=== PATIENT | male | born 2000 | race Caucasian/White ===

== ENCOUNTER 2022-09-20 14:53 | Inpatient (IN) | payer OTHER ==
[2022-09-20 16:58] LABS: BASO % 0.8 % (0-2.0); EOS % 3.7 % (0-4.5); HEMATOCRIT 43.9 % (35.4-49); HEMOGLOBIN 15.2 GM/dL (11.7-16.9); LYMPH % 14.4 % (8-40); MCH 26.9 pg (25.7-33.7); MCHC 34.5 g/dl (32.0-35.9); MEAN CELL VOLUME 77.8 fl (80-96); MEAN PLT VOLUME 8.7 fl (7.5-11.1); MONO % 4.6 % (3.8-10.2); NEUT % 76.5 % (42.8-82.8); PLATELET COUNT 385 10^3/uL (134-434); RBC 5.64 M/mm3 (4.00-5.60); WHITE BLOOD COUNT 10.2 K/mm3 (4.0-10.0)
[2022-09-20 17:05] LABS: INR 1.12 (0.83-1.09)
[2022-09-20 17:08] LABS: ACTIVATED PTT 34.4 SECONDS (25.2-36.5)
[2022-09-20 17:14] LABS: CALCIUM 9.4 mg/dL (8.5-10.1)
[2022-09-20 17:15] LABS: ALBUMIN 3.9 g/dl (3.4-5.0); BLOOD UREA NITROGEN 6.5 mg/dL (7-18)
[2022-09-20 17:18] LABS: CREATININE 0.4 mg/dL (0.55-1.3)
[2022-09-20 17:19] LABS: BILIRUBIN,TOTAL 0.2 mg/dL (0.2-1)
[2022-09-21] MEDS: levETIRAcetam 500 MG/5 ML INJECTION VIAL IVPB SCH ×3 (00:44→21:37)
[2022-09-21 02:30] VITALS: BMI 22.6
[2022-09-21 09:20] LABS: HEMATOCRIT 45.6 % (35.4-49); HEMOGLOBIN 15.5 GM/dL (11.7-16.9); MCH 26.7 pg (25.7-33.7); MEAN CELL VOLUME 78.4 fl (80-96); MEAN PLT VOLUME 8.5 fl (7.5-11.1); PLATELET COUNT 390 10^3/uL (134-434); RBC 5.82 M/mm3 (4.00-5.60); RDW 14.2 % (11.9-15.9); WHITE BLOOD COUNT 13.5 K/mm3 (4.0-10.0)
[2022-09-21 09:26] LABS: INR 1.27 (0.83-1.09); PROTHROMBIN TIME (PATIENT) 14.7 SEC (9.7-13.0)
[2022-09-21] MEDS ORDERED: SODIUM CHLORIDE 1,000 ML IV SCH (09:30)
[2022-09-21] MEDS ORDERED: AMPICILLIN NA/SULBACTAM NA 1.5 GM in SODIUM CHLORIDE 100 ML IVPB SCH ×2 (09:30→09:47)
[2022-09-21 09:38] LABS: CALCIUM 9.3 mg/dL (8.5-10.1)
[2022-09-21 09:39] LABS: ALBUMIN 3.9 g/dl (3.4-5.0); BLOOD UREA NITROGEN 11.6 mg/dL (7-18); MAGNESIUM 2.4 mg/dL (1.8-2.4)
[2022-09-21 09:41] LABS: PHOSPHOROUS 4.6 mg/dL (2.5-4.9)
[2022-09-21 09:42] LABS: CREATININE 0.4 mg/dL (0.55-1.3)
[2022-09-21 09:43] LABS: BILIRUBIN,TOTAL 0.6 mg/dL (0.2-1); TOT PROT 7.2 g/dl (6.4-8.2)
[2022-09-21] MEDS ORDERED: ALBUTEROL SO4 2.5/IPRATROPIUM 0.5 INH SOL 3 ML VIAL.NEB. NEB ONE (17:04)
[2022-09-21] MEDS ORDERED: SODIUM CHLORIDE 0.9% 1000 ML INFUS.BAG IV ONE (17:05)
[2022-09-21] MEDS ORDERED: ACETAMINOPHEN 650 MG SUPP.RECT RC PRN (17:07)
[2022-09-21] MEDS ORDERED: PIPERACILLIN/TAZOB 3.375 GM 3.375 GM in DEXTROSE 5%-WATER - 50 ML IVPB SCH (18:00)
[2022-09-21] MEDS: PIPERACILLIN/TAZOB 3.375 GM 3.375 GM in DEXTROSE 5%-WATER - 50 ML IVPB SCH (18:07)
[2022-09-21] MEDS: ALBUTEROL SO4 2.5/IPRATROPIUM 0.5 INH SOL 3 ML VIAL.NEB. NEB SCH (20:01)
[2022-09-21] MEDS ORDERED: ACETAMINOPHEN 1000 MG/100 ML BAG IVPB PRN (21:39)
[2022-09-22] MEDS: PIPERACILLIN/TAZOB 3.375 GM 3.375 GM in DEXTROSE 5%-WATER - 50 ML IVPB SCH ×2 (01:37→10:21)
[2022-09-22] MEDS: ALBUTEROL SO4 2.5/IPRATROPIUM 0.5 INH SOL 3 ML VIAL.NEB. NEB SCH ×7 (04:00→23:33)
[2022-09-22 07:22] LABS: BASO % 0.4 % (0-2.0); EOS % 0.4 % (0-4.5); HEMATOCRIT 38.5 % (35.4-49); HEMOGLOBIN 13.2 GM/dL (11.7-16.9); LYMPH % 13.2 % (8-40); MCH 26.8 pg (25.7-33.7); MCHC 34.2 g/dl (32.0-35.9); MEAN CELL VOLUME 78.5 fl (80-96); MEAN PLT VOLUME 8.5 fl (7.5-11.1); MONO % 7.1 % (3.8-10.2); NEUT % 78.9 % (42.8-82.8); PLATELET COUNT 363 10^3/uL (134-434); RDW 14.1 % (11.9-15.9); WHITE BLOOD COUNT 10.5 K/mm3 (4.0-10.0)
[2022-09-22 07:58] LABS: CALCIUM 8.6 mg/dL (8.5-10.1)
[2022-09-22 07:59] LABS: ALBUMIN 3.2 g/dl (3.4-5.0); BLOOD UREA NITROGEN 11.9 mg/dL (7-18); MAGNESIUM 2.3 mg/dL (1.8-2.4)
[2022-09-22 08:01] LABS: PHOSPHOROUS 3.2 mg/dL (2.5-4.9)
[2022-09-22 08:02] LABS: CREATININE 0.4 mg/dL (0.55-1.3)
[2022-09-22 08:03] LABS: BILIRUBIN,TOTAL 0.5 mg/dL (0.2-1); TOT PROT 6.1 g/dl (6.4-8.2)
[2022-09-22] MEDS ORDERED: SODIUM CHLORIDE 1,000 ML IV SCH (08:15)
[2022-09-22 09:12] LABS: ARTERIAL BLD GAS O2 SATURATION 99.8 % (95-98); ARTERIAL BLOOD GAS BASE EXCESS -1.8 mmol/L (-2-2); ARTERIAL BLOOD GAS PO2 360.9 mmHg (80-100); ARTERIAL BLOOD GAS pH 7.384 (7.350-7.450)
[2022-09-22 09:15] LABS: ALLENS TEST POSITIVE
[2022-09-22] MEDS: levETIRAcetam 500 MG/5 ML INJECTION VIAL IVPB SCH ×2 (10:22→21:21)
[2022-09-22] MEDS: AMINO ACIDS 4.25%/D5W 1,000 ML IV SCH (16:13)
[2022-09-22] MEDS: AMPICILLIN NA/SULBACTAM NA 3 GM in SODIUM CHLORIDE 100 ML IVPB SCH (19:04)
[2022-09-23] MEDS: AMPICILLIN NA/SULBACTAM NA 3 GM in SODIUM CHLORIDE 100 ML IVPB SCH ×3 (01:32→18:00)
[2022-09-23] MEDS: ALBUTEROL SO4 2.5/IPRATROPIUM 0.5 INH SOL 3 ML VIAL.NEB. NEB SCH ×5 (05:00→20:43)
[2022-09-23 08:36] LABS: BASO % 1.1 % (0-2.0); EOS % 3.1 % (0-4.5); HEMATOCRIT 35.8 % (35.4-49); HEMOGLOBIN 12.2 GM/dL (11.7-16.9); LYMPH % 16.1 % (8-40); MCHC 34.2 g/dl (32.0-35.9); MEAN PLT VOLUME 8.3 fl (7.5-11.1); MONO % 9.4 % (3.8-10.2); NEUT % 70.3 % (42.8-82.8); PLATELET COUNT 317 10^3/uL (134-434); RBC 4.53 M/mm3 (4.00-5.60); RDW 13.8 % (11.9-15.9); WHITE BLOOD COUNT 6.4 K/mm3 (4.0-10.0)
[2022-09-23 09:00] LABS: ALBUMIN 3.4 g/dl (3.4-5.0); CALCIUM 8.4 mg/dL (8.5-10.1)
[2022-09-23 09:01] LABS: BLOOD UREA NITROGEN 13.3 mg/dL (7-18)
[2022-09-23 09:03] LABS: CREATININE 0.3 mg/dL (0.55-1.3); PHOSPHOROUS 2.5 mg/dL (2.5-4.9)
[2022-09-23 09:05] LABS: BILIRUBIN,TOTAL 0.5 mg/dL (0.2-1); TOT PROT 6.3 g/dl (6.4-8.2)
[2022-09-23] MEDS: AMINO ACIDS 4.25%/D5W 1,000 ML IV SCH ×2 (10:29→16:22)
[2022-09-23] MEDS: levETIRAcetam 500 MG/5 ML INJECTION VIAL IVPB SCH ×2 (10:30→21:50)
[2022-09-24] MEDS: ALBUTEROL SO4 2.5/IPRATROPIUM 0.5 INH SOL 3 ML VIAL.NEB. NEB SCH ×7 (00:43→23:32)
[2022-09-24] MEDS: AMPICILLIN NA/SULBACTAM NA 3 GM in SODIUM CHLORIDE 100 ML IVPB SCH ×3 (02:08→17:32)
[2022-09-24] MEDS: AMINO ACIDS 4.25%/D5W 1,000 ML IV SCH ×2 (06:03→15:13)
[2022-09-24 07:38] LABS: BASO % 1.1 % (0-2.0); EOS % 5.5 % (0-4.5); HEMATOCRIT 36.8 % (35.4-49); HEMOGLOBIN 12.4 GM/dL (11.7-16.9); LYMPH % 19.5 % (8-40); MCH 26.6 pg (25.7-33.7); MCHC 33.8 g/dl (32.0-35.9); MEAN CELL VOLUME 78.8 fl (80-96); MEAN PLT VOLUME 8.2 fl (7.5-11.1); MONO % 9.3 % (3.8-10.2); NEUT % 64.6 % (42.8-82.8); PLATELET COUNT 326 10^3/uL (134-434); RBC 4.67 M/mm3 (4.00-5.60); RDW 13.8 % (11.9-15.9); WHITE BLOOD COUNT 6.3 K/mm3 (4.0-10.0)
[2022-09-24 07:55] LABS: CALCIUM 8.6 mg/dL (8.5-10.1)
[2022-09-24 07:56] LABS: ALBUMIN 3.5 g/dl (3.4-5.0); BLOOD UREA NITROGEN 16.6 mg/dL (7-18)
[2022-09-24 07:59] LABS: CREATININE 0.3 mg/dL (0.55-1.3); PHOSPHOROUS 3.6 mg/dL (2.5-4.9)
[2022-09-24 08:01] LABS: BILIRUBIN,TOTAL 0.4 mg/dL (0.2-1); TOT PROT 6.4 g/dl (6.4-8.2)
[2022-09-24] MEDS: levETIRAcetam 500 MG/5 ML INJECTION VIAL IVPB SCH (09:27)
[2022-09-24] MEDS ORDERED: ACETAMINOPHEN 650 MG SUPP.RECT RC PRN (15:27)
[2022-09-24] MEDS ORDERED: POTASSIUM PHOSPHATE 30 MM in SODIUM CHLORIDE 500 ML IVPB ONE (15:37)
[2022-09-24] MEDS ORDERED: diphenhydrAMINE HCL 12.5 MG/5 ML UNIT-DOSE CUPS PEG PRN (18:39)
[2022-09-24] MEDS ORDERED: levETIRAcetam 500 MG/5 ML INJECTION VIAL IVPB SCH (22:00)
[2022-09-24] MEDS: BACLOFEN 10 MG TABLET (FP) PEG SCH ×2 (23:36→23:37)
[2022-09-24] MEDS: LORATADINE 10 MG TABLET GT SCH (23:37)
[2022-09-24] MEDS: FAMOTIDINE 40 MG/5 ML ORAL SUSPENSION PEG SCH (23:38)
[2022-09-24] MEDS: OXcarbazepine 300 MG/5 ML 250 ML BULK BOTTLE PEG SCH (23:39)
[2022-09-25] MEDS: AMPICILLIN NA/SULBACTAM NA 3 GM in SODIUM CHLORIDE 100 ML IVPB SCH ×2 (02:47→10:58)
[2022-09-25] MEDS: levETIRAcetam 500 MG/5 ML ORAL SOLUTION BULK PEG SCH ×2 (04:07→16:21)
[2022-09-25] MEDS: ALBUTEROL SO4 2.5/IPRATROPIUM 0.5 INH SOL 3 ML VIAL.NEB. NEB SCH ×5 (04:57→21:22)
[2022-09-25] MEDS: BACLOFEN 10 MG TABLET (FP) PEG SCH ×4 (07:45→22:26)
[2022-09-25 08:49] LABS: BASO % 0.5 % (0-2.0); EOS % 3.5 % (0-4.5); HEMATOCRIT 38.7 % (35.4-49); LYMPH % 10.6 % (8-40); MCH 26.5 pg (25.7-33.7); MCHC 33.5 g/dl (32.0-35.9); MEAN CELL VOLUME 79.1 fl (80-96); MEAN PLT VOLUME 8.7 fl (7.5-11.1); MONO % 6.3 % (3.8-10.2); NEUT % 79.1 % (42.8-82.8); PLATELET COUNT 319 10^3/uL (134-434); RDW 13.5 % (11.9-15.9); WHITE BLOOD COUNT 9.3 K/mm3 (4.0-10.0)
[2022-09-25 09:16] LABS: CALCIUM 8.5 mg/dL (8.5-10.1)
[2022-09-25 09:17] LABS: ALBUMIN 3.7 g/dl (3.4-5.0); BLOOD UREA NITROGEN 12.8 mg/dL (7-18)
[2022-09-25 09:20] LABS: CREATININE 0.3 mg/dL (0.55-1.3); PHOSPHOROUS 4.3 mg/dL (2.5-4.9)
[2022-09-25 09:21] LABS: BILIRUBIN,TOTAL 0.7 mg/dL (0.2-1); TOT PROT 6.6 g/dl (6.4-8.2)
[2022-09-25] MEDS ORDERED: LACTOBACILLUS ACIDOPHILUS C PEG SCH (10:00)
[2022-09-25] MEDS: FAMOTIDINE 40 MG/5 ML ORAL SUSPENSION PEG SCH ×2 (10:58→22:21)
[2022-09-25] MEDS: LACTOBACILLUS ACIDOPHILUS 1 TABLET PEG SCH (10:58)
[2022-09-25] MEDS: OXcarbazepine 300 MG/5 ML 250 ML BULK BOTTLE PEG SCH ×2 (10:58→22:22)
[2022-09-25 12:30] LABS: ARTERIAL BLD GAS O2 SATURATION 95.9 % (95-98); ARTERIAL BLOOD GAS BASE EXCESS -4.3 mmol/L (-2-2); ARTERIAL BLOOD GAS PO2 82.1 mmHg (80-100); ARTERIAL BLOOD GAS pH 7.369 (7.350-7.450)
[2022-09-25 12:35] LABS: ALLENS TEST POSITIVE
[2022-09-25] MEDS ORDERED: LACTATED RINGERS SOLUTION 1000 ML INFUS.BAG IV ONE (15:41)
[2022-09-25] MEDS ORDERED: PIPERACILLIN/TAZOBACTAM 3.375 GM VIAL IVPB ONE (16:29)
[2022-09-25] MEDS: PIPERACILLIN/TAZOB 3.375 GM 3.375 GM in DEXTROSE 5%-WATER - 50 ML IVPB SCH (16:32)
[2022-09-25] MEDS: LACTATED RINGERS SOLUTION 1,000 ML/1,000 ML INFUS.BAG IV SCH (18:27)
[2022-09-25] MEDS ORDERED: PIPERACILLIN/TAZOB 4.5 GM 4.5 GM in DEXTROSE 5%-WATER 100 ML IVPB SCH (21:00)
[2022-09-25] MEDS: LORATADINE 10 MG TABLET GT SCH (22:23)
[2022-09-26] MEDS: ALBUTEROL SO4 2.5/IPRATROPIUM 0.5 INH SOL 3 ML VIAL.NEB. NEB SCH ×7 (00:11→23:49)
[2022-09-26] MEDS: PIPERACILLIN/TAZOB 3.375 GM 3.375 GM in DEXTROSE 5%-WATER - 50 ML IVPB SCH ×3 (00:31→16:07)
[2022-09-26] MEDS: levETIRAcetam 500 MG/5 ML ORAL SOLUTION BULK PEG SCH ×2 (06:28→15:07)
[2022-09-26] MEDS: BACLOFEN 10 MG TABLET (FP) PEG SCH ×4 (06:28→21:26)
[2022-09-26] MEDS: LACTATED RINGERS SOLUTION 1,000 ML/1,000 ML INFUS.BAG IV SCH ×2 (06:29→18:31)
[2022-09-26 07:34] LABS: BASO % 0.9 % (0-2.0); EOS % 2.5 % (0-4.5); HEMATOCRIT 35.2 % (35.4-49); HEMOGLOBIN 11.8 GM/dL (11.7-16.9); LYMPH % 12.6 % (8-40); MCH 26.5 pg (25.7-33.7); MCHC 33.4 g/dl (32.0-35.9); MEAN CELL VOLUME 79.3 fl (80-96); MEAN PLT VOLUME 9.1 fl (7.5-11.1); MONO % 5.3 % (3.8-10.2); NEUT % 78.7 % (42.8-82.8); PLATELET COUNT 231 10^3/uL (134-434); RBC 4.44 M/mm3 (4.00-5.60); WHITE BLOOD COUNT 8.1 K/mm3 (4.0-10.0)
[2022-09-26 07:59] LABS: BLOOD UREA NITROGEN 10.4 mg/dL (7-18); CALCIUM 8.3 mg/dL (8.5-10.1)
[2022-09-26 08:02] LABS: CREATININE 0.2 mg/dL (0.55-1.3); PHOSPHOROUS 2.3 mg/dL (2.5-4.9)
[2022-09-26 08:04] LABS: BILIRUBIN,TOTAL 0.9 mg/dL (0.2-1); TOT PROT 5.5 g/dl (6.4-8.2)
[2022-09-26] MEDS ORDERED: POTASSIUM CHLORIDE ORAL LIQUID 20 MEQ/15 ML GT ONE (08:13)
[2022-09-26] MEDS: LACTOBACILLUS ACIDOPHILUS 1 TABLET PEG SCH (09:27)
[2022-09-26] MEDS: KCL 10 MEQ IVPB 10 MEQ/100 ML INFUS.BAG IVPB SCH ×3 (09:27→11:59)
[2022-09-26] MEDS: FAMOTIDINE 40 MG/5 ML ORAL SUSPENSION PEG SCH ×2 (09:27→21:25)
[2022-09-26] MEDS: OXcarbazepine 300 MG/5 ML 250 ML BULK BOTTLE PEG SCH ×2 (09:27→21:25)
[2022-09-26] MEDS ORDERED: SODIUM PHOSPHATE - 15 MM in DEXTROSE 5%-WATER - 250 ML IVPB ONE (09:30)
[2022-09-26] MEDS: LORATADINE 10 MG TABLET GT SCH (21:25)
[2022-09-27] MEDS: PIPERACILLIN/TAZOB 3.375 GM 3.375 GM in DEXTROSE 5%-WATER - 50 ML IVPB SCH ×4 (00:31→23:16)
[2022-09-27] MEDS: ALBUTEROL SO4 2.5/IPRATROPIUM 0.5 INH SOL 3 ML VIAL.NEB. NEB SCH ×5 (04:36→21:04)
[2022-09-27] MEDS: BACLOFEN 10 MG TABLET (FP) PEG SCH ×4 (04:49→22:08)
[2022-09-27] MEDS: levETIRAcetam 500 MG/5 ML ORAL SOLUTION BULK PEG SCH ×2 (04:50→16:13)
[2022-09-27 08:29] LABS: BASO % 0.7 % (0-2.0); EOS % 6.7 % (0-4.5); HEMATOCRIT 33.5 % (35.4-49); HEMOGLOBIN 11.2 GM/dL (11.7-16.9); LYMPH % 20.8 % (8-40); MCH 27.1 pg (25.7-33.7); MCHC 33.6 g/dl (32.0-35.9); MEAN CELL VOLUME 80.8 fl (80-96); MEAN PLT VOLUME 9.4 fl (7.5-11.1); MONO % 5.6 % (3.8-10.2); NEUT % 66.2 % (42.8-82.8); PLATELET COUNT 212 10^3/uL (134-434); RBC 4.14 M/mm3 (4.00-5.60); RDW 13.9 % (11.9-15.9); WHITE BLOOD COUNT 5.4 K/mm3 (4.0-10.0)
[2022-09-27 08:48] LABS: CALCIUM 7.8 mg/dL (8.5-10.1)
[2022-09-27 08:49] LABS: ALBUMIN 2.9 g/dl (3.4-5.0); BLOOD UREA NITROGEN 5.6 mg/dL (7-18); MAGNESIUM 1.9 mg/dL (1.8-2.4)
[2022-09-27 08:51] LABS: PHOSPHOROUS 2.2 mg/dL (2.5-4.9)
[2022-09-27 08:52] LABS: CREATININE 0.2 mg/dL (0.55-1.3)
[2022-09-27 08:53] LABS: BILIRUBIN,TOTAL 0.5 mg/dL (0.2-1); TOT PROT 5.6 g/dl (6.4-8.2)
[2022-09-27] MEDS ORDERED: POTASSIUM CHLORIDE ORAL LIQUID 20 MEQ/15 ML GT ONE (09:15)
[2022-09-27] MEDS: LACTOBACILLUS ACIDOPHILUS 1 TABLET PEG SCH (09:50)
[2022-09-27] MEDS: FAMOTIDINE 40 MG/5 ML ORAL SUSPENSION PEG SCH ×2 (09:50→22:01)
[2022-09-27] MEDS ORDERED: SODIUM PHOSPHATE - 15 MM in DEXTROSE 5%-WATER - 250 ML IVPB ONE (10:15)
[2022-09-27] MEDS: LACTATED RINGERS SOLUTION 1,000 ML/1,000 ML INFUS.BAG IV SCH (16:10)
[2022-09-27] MEDS: OXcarbazepine 300 MG/5 ML 250 ML BULK BOTTLE PEG SCH ×2 (16:14→22:02)
[2022-09-27] MEDS: LORATADINE 10 MG TABLET GT SCH (21:57)
[2022-09-28] MEDS: ALBUTEROL SO4 2.5/IPRATROPIUM 0.5 INH SOL 3 ML VIAL.NEB. NEB SCH ×4 (00:27→11:37)
[2022-09-28 02:29] VITALS: RESP 20
[2022-09-28] MEDS: levETIRAcetam 500 MG/5 ML ORAL SOLUTION BULK PEG SCH ×2 (05:52→17:45)
[2022-09-28] MEDS: BACLOFEN 10 MG TABLET (FP) PEG SCH ×2 (05:52→15:18)
[2022-09-28] MEDS: PIPERACILLIN/TAZOB 3.375 GM 3.375 GM in DEXTROSE 5%-WATER - 50 ML IVPB SCH ×2 (08:01→17:17)
[2022-09-28 08:10] LABS: BASO % 0.9 % (0-2.0); EOS % 6.9 % (0-4.5); HEMATOCRIT 35.1 % (35.4-49); HEMOGLOBIN 11.7 GM/dL (11.7-16.9); MCH 26.6 pg (25.7-33.7); MCHC 33.5 g/dl (32.0-35.9); MEAN CELL VOLUME 79.6 fl (80-96); MEAN PLT VOLUME 8.7 fl (7.5-11.1); MONO % 6.5 % (3.8-10.2); NEUT % 64.7 % (42.8-82.8); PLATELET COUNT 276 10^3/uL (134-434); RDW 13.7 % (11.9-15.9); WHITE BLOOD COUNT 5.5 K/mm3 (4.0-10.0)
[2022-09-28 08:36] LABS: ALBUMIN 2.8 g/dl (3.4-5.0); BLOOD UREA NITROGEN 5.2 mg/dL (7-18); CALCIUM 8.5 mg/dL (8.5-10.1); MAGNESIUM 2.1 mg/dL (1.8-2.4)
[2022-09-28 08:39] LABS: CREATININE 0.3 mg/dL (0.55-1.3); PHOSPHOROUS 3.1 mg/dL (2.5-4.9)
[2022-09-28 08:41] LABS: BILIRUBIN,TOTAL 0.5 mg/dL (0.2-1); TOT PROT 5.5 g/dl (6.4-8.2)
[2022-09-28] MEDS: FAMOTIDINE 40 MG/5 ML ORAL SUSPENSION PEG SCH (09:38)
[2022-09-28] MEDS: LACTOBACILLUS ACIDOPHILUS 1 TABLET PEG SCH (09:39)
[2022-09-28] MEDS: OXcarbazepine 300 MG/5 ML 250 ML BULK BOTTLE PEG SCH (09:40)
[2022-09-28] MEDS ORDERED: POTASSIUM CHLORIDE ORAL LIQUID 20 MEQ/15 ML GT ONE (09:56)
[2022-09-28 14:42] VITALS: PULSE 78
[2022-09-28 14:45] VITALS: BP 117/68; TEMP 98.7
[2022-09-28] MEDS: LACTATED RINGERS SOLUTION 1,000 ML/1,000 ML INFUS.BAG IV SCH (16:33)
== END 2022-09-28 18:26 | DRG 919 ==
LOC: JER 14:53 → JERBED 16:35 → J6S 22:55 → JERBED 22:55 → OBSVTOIN 09-21 11:03 → J6S 09-21 11:41 → J4S 09-21 21:14
PROVIDERS: ADMIT Internal Medicine; ATTEND Internal Medicine
DX: T85.528A Displacement of other gastrointestinal prosthetic devices, implants and grafts, initial encounter (principal); A41.9 Sepsis, unspecified organism; G82.50 Quadriplegia, unspecified; J69.0 Pneumonitis due to inhalation of food and vomit; J96.01 Acute respiratory failure with hypoxia; Y83.9 Surgical procedure, unspecified as the cause of abnormal reaction of the patient, or of later complication, without mention of misadventure at the time of the procedure; G40.909 Epilepsy, unspecified, not intractable, without status epilepticus; K21.9 Gastro-esophageal reflux disease without esophagitis; E16.2 Hypoglycemia, unspecified
CPT/HCPCS: 0241U-QW; 36415; 36600; 49465; 71045-TC-FY; 80053; 82803; 82962; 83735; 84100; 85025; 85027; 85610; 85730; 86850; 86900; 86901; 87040; 87070; 87081; 87186; 87205; 94640; 99285-25; C9803-CS; G0378; J0475; U0003; U0005

== ENCOUNTER 2022-10-12 19:28 | Inpatient (IN) | payer OTHER ==
[2022-10-12 22:40] LABS: EOS % 3.8 % (0-4.5); HEMATOCRIT 41.4 % (35.4-49); HEMOGLOBIN 13.7 GM/dL (11.7-16.9); LYMPH % 15.8 % (8-40); MCH 26.1 pg (25.7-33.7); MCHC 33.1 g/dl (32.0-35.9); MEAN PLT VOLUME 8.7 fl (7.5-11.1); MONO % 4.9 % (3.8-10.2); NEUT % 74.5 % (42.8-82.8); PLATELET COUNT 398 10^3/uL (134-434); RBC 5.25 M/mm3 (4.00-5.60); RDW 14.8 % (11.9-15.9); WHITE BLOOD COUNT 11.1 K/mm3 (4.0-10.0)
[2022-10-12 22:51] LABS: INR 1.16 (0.83-1.09); PROTHROMBIN TIME (PATIENT) 13.4 SEC (9.7-13.0)
[2022-10-12 22:53] LABS: ACTIVATED PTT 32.7 SECONDS (25.2-36.5)
[2022-10-12 22:59] LABS: POTASSIUM 4.2 mmol/L (3.5-5.1)
[2022-10-12 23:02] LABS: ALBUMIN 3.6 g/dl (3.4-5.0)
[2022-10-12 23:05] LABS: CREATININE 0.3 mg/dL (0.55-1.3)
[2022-10-12 23:07] LABS: BILIRUBIN,TOTAL 0.2 mg/dL (0.2-1); TOT PROT 6.9 g/dl (6.4-8.2)
[2022-10-12] MEDS ORDERED: ALBUTEROL SO4 2.5/IPRATROPIUM 0.5 INH SOL 3 ML VIAL.NEB. NEB ONE (23:42)
[2022-10-12] MEDS ORDERED: SODIUM CHLORIDE 0.9% 500 ML INFUS.BAG IV ONE (23:47)
[2022-10-13] MEDS: ALBUTEROL SO4 2.5/IPRATROPIUM 0.5 INH SOL 3 ML VIAL.NEB. NEB SCH ×3 (00:10→00:28)
[2022-10-13] MEDS ORDERED: ACETAMINOPHEN INJECTION 100 ML IVPB ONE (00:54)
[2022-10-13] MEDS: levETIRAcetam 500 MG/5 ML INJECTION VIAL IVPB SCH ×2 (04:01→09:25)
[2022-10-13] MEDS ORDERED: ALBUTEROL SO4 HFA INHALER IH PRN (06:49)
[2022-10-13] MEDS ORDERED: BISACODYL 10 MG SUPP.RECT RC PRN (06:49)
[2022-10-13 07:14] LABS: BASO % 0.5 % (0-2.0); EOS % 1.2 % (0-4.5); HEMATOCRIT 37.3 % (35.4-49); HEMOGLOBIN 12.4 GM/dL (11.7-16.9); LYMPH % 6.1 % (8-40); MCH 26.5 pg (25.7-33.7); MCHC 33.3 g/dl (32.0-35.9); MEAN CELL VOLUME 79.7 fl (80-96); MEAN PLT VOLUME 9.3 fl (7.5-11.1); MONO % 3.7 % (3.8-10.2); NEUT % 88.5 % (42.8-82.8); PLATELET COUNT 340 10^3/uL (134-434); RBC 4.68 M/mm3 (4.00-5.60); RDW 14.9 % (11.9-15.9); WHITE BLOOD COUNT 16.4 K/mm3 (4.0-10.0)
[2022-10-13 07:21] LABS: INR 1.18 (0.83-1.09); PROTHROMBIN TIME (PATIENT) 13.7 SEC (9.7-13.0)
[2022-10-13 07:24] LABS: ACTIVATED PTT 32.1 SECONDS (25.2-36.5)
[2022-10-13 07:30] LABS: POTASSIUM 3.8 mmol/L (3.5-5.1)
[2022-10-13 07:32] LABS: CALCIUM 8.4 mg/dL (8.5-10.1)
[2022-10-13 07:33] LABS: ALBUMIN 3.4 g/dl (3.4-5.0); BLOOD UREA NITROGEN 8.3 mg/dL (7-18); MAGNESIUM 1.9 mg/dL (1.8-2.4)
[2022-10-13 07:36] LABS: CREATININE 0.3 mg/dL (0.55-1.3); PHOSPHOROUS 5.1 mg/dL (2.5-4.9)
[2022-10-13 07:37] LABS: BILIRUBIN,TOTAL 0.2 mg/dL (0.2-1); TOT PROT 6.1 g/dl (6.4-8.2)
[2022-10-13] MEDS: MOMETASONE FUROATE 110 MCG/IH INHALER IH SCH ×2 (09:23→21:13)
[2022-10-13] MEDS ORDERED: GLYCOPYRROLATE 0.2 MG/1 ML VIAL IM SCH (10:00)
[2022-10-13] MEDS ORDERED: AMINO ACIDS 4.25%/D5W 1,000 ML IV SCH (11:15)
[2022-10-13] MEDS: ACETAMINOPHEN 650 MG SUPP.RECT RC PRN (11:57)
[2022-10-13] MEDS: diazePAM RECTAL GEL 10 MG KIT (PRE-CALIBRATED) RC SCH (12:19)
[2022-10-13] MEDS ORDERED: SODIUM CHLORIDE 1,000 ML IV SCH (13:45)
[2022-10-13] MEDS ORDERED: diphenhydrAMINE HCL 12.5 MG/5 ML UNIT-DOSE CUPS PEG PRN (14:15)
[2022-10-13] MEDS ORDERED: SIMETHICONE 40 MG/0.6 ML BOTTLE PEG PRN (14:15)
[2022-10-13] MEDS: BACLOFEN 10 MG TABLET (FP) PEG SCH ×3 (15:24→21:11)
[2022-10-13] MEDS: LORATADINE 10 MG TABLET GT SCH (21:12)
[2022-10-13] MEDS: GLYCOPYRROLATE 1 MG TABLET PEG SCH (21:12)
[2022-10-13] MEDS: levETIRAcetam 500 MG/5 ML ORAL SOLUTION (UNIT-DOSE CUPS) PO SCH (21:12)
[2022-10-13] MEDS ORDERED: OXcarbazepine 300 MG/5 ML UNIT DOSE CUPS PEG SCH (22:00)
[2022-10-14] MEDS: OXcarbazepine 300 MG/5 ML UNIT DOSE CUPS PEG SCH ×2 (06:24→17:07)
[2022-10-14] MEDS: BACLOFEN 10 MG TABLET (FP) PEG SCH ×4 (06:27→21:17)
[2022-10-14 07:03] LABS: BASO % 0.6 % (0-2.0); HEMATOCRIT 38.4 % (35.4-49); HEMOGLOBIN 12.8 GM/dL (11.7-16.9); LYMPH % 7.8 % (8-40); MCH 26.4 pg (25.7-33.7); MCHC 33.4 g/dl (32.0-35.9); MEAN CELL VOLUME 78.9 fl (80-96); MEAN PLT VOLUME 9.3 fl (7.5-11.1); MONO % 4.9 % (3.8-10.2); NEUT % 84.7 % (42.8-82.8); PLATELET COUNT 369 10^3/uL (134-434); RBC 4.86 M/mm3 (4.00-5.60); RDW 14.6 % (11.9-15.9); WHITE BLOOD COUNT 12.8 K/mm3 (4.0-10.0)
[2022-10-14 07:09] LABS: POTASSIUM 3.7 mmol/L (3.5-5.1)
[2022-10-14 07:11] LABS: ALBUMIN 3.4 g/dl (3.4-5.0); BLOOD UREA NITROGEN 6.3 mg/dL (7-18); CALCIUM 8.9 mg/dL (8.5-10.1); MAGNESIUM 2.2 mg/dL (1.8-2.4)
[2022-10-14 07:14] LABS: CREATININE 0.3 mg/dL (0.55-1.3)
[2022-10-14 07:16] LABS: BILIRUBIN,TOTAL 0.2 mg/dL (0.2-1); TOT PROT 6.6 g/dl (6.4-8.2)
[2022-10-14] MEDS: MOMETASONE FUROATE 110 MCG/IH INHALER IH SCH ×2 (09:34→21:19)
[2022-10-14] MEDS: LACTOBACILLUS ACIDOPHILUS 1 TABLET PEG SCH (09:35)
[2022-10-14] MEDS: PANTOPRAZOLE 40 MG TABLET PO SCH (09:35)
[2022-10-14] MEDS: levETIRAcetam 500 MG/5 ML ORAL SOLUTION (UNIT-DOSE CUPS) PO SCH ×2 (09:36→21:19)
[2022-10-14] MEDS: GLYCOPYRROLATE 1 MG TABLET PEG SCH ×2 (09:37→21:16)
[2022-10-14] MEDS ORDERED: ZINC OXIDE 20% TOPICAL OINTMENT 30 GM TUBE TP PRN (12:45)
[2022-10-14] MEDS ORDERED: diazePAM RECTAL GEL 10 MG KIT (PRE-CALIBRATED) RC PRN (14:19)
[2022-10-14] MEDS ORDERED: SIMETHICONE 40 MG/0.6 ML BOTTLE PEG PRN (14:59)
[2022-10-14] MEDS: diazePAM RECTAL GEL 10 MG KIT (PRE-CALIBRATED) RC SCH (15:21)
[2022-10-14] MEDS: LORATADINE 10 MG TABLET GT SCH (21:16)
[2022-10-15] MEDS: BACLOFEN 10 MG TABLET (FP) PEG SCH ×4 (04:18→22:11)
[2022-10-15] MEDS: OXcarbazepine 300 MG/5 ML UNIT DOSE CUPS PEG SCH ×2 (04:19→17:37)
[2022-10-15] MEDS: LACTOBACILLUS ACIDOPHILUS 1 TABLET PEG SCH (13:25)
[2022-10-15] MEDS: levETIRAcetam 500 MG/5 ML ORAL SOLUTION (UNIT-DOSE CUPS) PO SCH ×2 (13:26→22:10)
[2022-10-15] MEDS: GLYCOPYRROLATE 1 MG TABLET PEG SCH ×2 (13:26→22:11)
[2022-10-15] MEDS: PANTOPRAZOLE 40 MG TABLET PO SCH (13:26)
[2022-10-15] MEDS: MOMETASONE FUROATE 110 MCG/IH INHALER IH SCH ×2 (13:27→22:10)
[2022-10-15] MEDS: ACETAMINOPHEN 650 MG SUPP.RECT RC PRN (16:30)
[2022-10-15 17:21] VITALS: BMI 20.4
[2022-10-15] MEDS: LORATADINE 10 MG TABLET GT SCH (22:10)
[2022-10-15 22:18] LABS: PH,URINE 8.5 (5.0-8.0); URINE APPEARANCE CLEAR; URINE BILIRUBIN NEGATIVE (NEGATIVE); URINE COLOR YELLOW; URINE GLUCOSE (UA) NEGATIVE (NEGATIVE); URINE KETONE NEGATIVE (NEGATIVE); URINE LEUK ESTERASE NEGATIVE (NEGATIVE); URINE NITRITE NEGATIVE (NEGATIVE); URINE PROTEIN NEGATIVE (NEGATIVE); URINE UROBILINOGEN 0.2 mg/dL (0.2-1.0)
[2022-10-16 02:01] VITALS: RESP 20
[2022-10-16] MEDS: OXcarbazepine 300 MG/5 ML UNIT DOSE CUPS PEG SCH (04:32)
[2022-10-16] MEDS: BACLOFEN 10 MG TABLET (FP) PEG SCH ×2 (04:32→15:24)
[2022-10-16 06:59] LABS: BASO % 0.6 % (0-2.0); EOS % 2.5 % (0-4.5); HEMATOCRIT 40.7 % (35.4-49); HEMOGLOBIN 13.9 GM/dL (11.7-16.9); LYMPH % 8.7 % (8-40); MCH 26.8 pg (25.7-33.7); MCHC 34.3 g/dl (32.0-35.9); MEAN CELL VOLUME 78.1 fl (80-96); MEAN PLT VOLUME 8.2 fl (7.5-11.1); MONO % 5.9 % (3.8-10.2); NEUT % 82.3 % (42.8-82.8); PLATELET COUNT 404 10^3/uL (134-434); RBC 5.21 M/mm3 (4.00-5.60); RDW 14.6 % (11.9-15.9); WHITE BLOOD COUNT 12.5 K/mm3 (4.0-10.0)
[2022-10-16 07:25] LABS: POTASSIUM 4.3 mmol/L (3.5-5.1)
[2022-10-16 07:29] LABS: ALBUMIN 3.6 g/dl (3.4-5.0); BLOOD UREA NITROGEN 8.7 mg/dL (7-18); CALCIUM 8.7 mg/dL (8.5-10.1)
[2022-10-16 07:32] LABS: CREATININE 0.4 mg/dL (0.55-1.3)
[2022-10-16 07:33] LABS: BILIRUBIN,TOTAL 0.3 mg/dL (0.2-1); TOT PROT 7.1 g/dl (6.4-8.2)
[2022-10-16] MEDS: LACTOBACILLUS ACIDOPHILUS 1 TABLET PEG SCH (10:31)
[2022-10-16] MEDS: levETIRAcetam 500 MG/5 ML ORAL SOLUTION (UNIT-DOSE CUPS) PO SCH (10:31)
[2022-10-16] MEDS: GLYCOPYRROLATE 1 MG TABLET PEG SCH (10:31)
[2022-10-16] MEDS: PANTOPRAZOLE 40 MG TABLET PO SCH (10:31)
[2022-10-16] MEDS: MOMETASONE FUROATE 110 MCG/IH INHALER IH SCH (10:33)
[2022-10-16] MEDS ORDERED: SODIUM CHLORIDE 1,000 ML IV STA (13:45)
[2022-10-16 15:01] VITALS: BP 105/87; PULSE 115; TEMP 98.4
== END 2022-10-16 17:18 | DRG 919 ==
LOC: JER 19:28 → JERBED 23:13 → OBSVTOIN 10-13 01:54 → J4S 10-13 03:30
PROVIDERS: ADMIT Internal Medicine; ATTEND Internal Medicine
PROC: 0D2DXUZ Change Feeding Device in Lower Intestinal Tract, External Approach (ICD-10-PCS; principal; 2022-10-13)
DX: T85.528A Displacement of other gastrointestinal prosthetic devices, implants and grafts, initial encounter (principal); G82.50 Quadriplegia, unspecified; Y83.9 Surgical procedure, unspecified as the cause of abnormal reaction of the patient, or of later complication, without mention of misadventure at the time of the procedure; J45.909 Unspecified asthma, uncomplicated; K21.9 Gastro-esophageal reflux disease without esophagitis; G40.909 Epilepsy, unspecified, not intractable, without status epilepticus
CPT/HCPCS: 0241U-QW; 36415; 71045-TC-FY; 74018-TC-FY; 80053; 81003; 83735; 84100; 85025; 85610; 85730; 86850; 86900; 86901; 87040; 87086; 93005; 93010; 99285-25; G0378; J0475

== ENCOUNTER 2023-02-08 10:32 | Inpatient (IN) | payer OTHER ==
[2023-02-08] MEDS: ALBUTEROL SO4 2.5/IPRATROPIUM 0.5 INH SOL 3 ML VIAL.NEB. NEB SCH ×3 (11:50→12:02)
[2023-02-08 12:12] LABS: BASO % 0.4 % (0-2.0); HEMATOCRIT 46.5 % (35.4-49); HEMOGLOBIN 14.9 GM/dL (11.7-16.9); LYMPH % 6.7 % (8-40); MCH 24.6 pg (25.7-33.7); MCHC 31.9 g/dl (32.0-35.9); MEAN CELL VOLUME 76.9 fl (80-96); MEAN PLT VOLUME 8.5 fl (7.5-11.1); MONO % 3.8 % (3.8-10.2); NEUT % 88.1 % (42.8-82.8); PLATELET COUNT 382 10^3/uL (134-434); RBC 6.05 M/mm3 (4.00-5.60); RDW 14.7 % (11.9-15.9); WHITE BLOOD COUNT 16.7 K/mm3 (4.0-10.0)
[2023-02-08 12:14] LABS: EPI CELLS 13 /uL (0-25.1); HYALINE CASTS 1 /uL (0-3.1); PH,URINE >= 9.0 (5.0-8.0); URINE APPEARANCE CLEAR; URINE BACTERIA 28 /uL (0-1359); URINE BILIRUBIN NEGATIVE (NEGATIVE); URINE COLOR YELLOW; URINE GLUCOSE (UA) NEGATIVE (NEGATIVE); URINE KETONE NEGATIVE (NEGATIVE); URINE LEUK ESTERASE TRACE (NEGATIVE); URINE NITRITE NEGATIVE (NEGATIVE); URINE PROTEIN NEGATIVE (NEGATIVE); URINE RBC 6 /uL (0-23.9); URINE UROBILINOGEN 0.2 mg/dL (0.2-1.0); URINE WBC 16 /uL (0-25.8)
[2023-02-08 12:15] LABS: VENOUS BASE EXCESS -0.2 mmol/L (-2-2); VENOUS O2 SATURATION 94.8 % (70-80); VENOUS PCO2 41.4 mmHg (38-52); VENOUS PH 7.394 (7.310-7.410)
[2023-02-08 12:17] LABS: INR 1.11 (0.83-1.09); PROTHROMBIN TIME (PATIENT) 12.9 SEC (9.7-13.0)
[2023-02-08 12:31] LABS: POTASSIUM 4.3 mmol/L (3.5-5.1)
[2023-02-08 12:33] LABS: ALBUMIN 3.8 g/dl (3.4-5.0); BLOOD UREA NITROGEN 4.9 mg/dL (7-18); CALCIUM 8.8 mg/dL (8.5-10.1)
[2023-02-08 12:37] LABS: CREATININE 0.4 mg/dL (0.55-1.3)
[2023-02-08 12:38] LABS: BILIRUBIN,TOTAL 0.2 mg/dL (0.2-1)
[2023-02-08] MEDS ORDERED: ACETAMINOPHEN 1000 MG/100 ML BAG IVPB ONE (13:03)
[2023-02-08] MEDS ORDERED: ACETAMINOPHEN INJECTION 100 ML IVPB ONE (13:05)
[2023-02-08] MEDS ORDERED: PIPERACILLIN/TAZOB 4.5 GM 4.5 GM in DEXTROSE 5%-WATER 100 ML IVPB ONE (13:06)
[2023-02-08] MEDS ORDERED: VANCOMYCIN 1,000 MG in DEXTROSE 5%-WATER - 250 ML IVPB ONE (13:08)
[2023-02-08] MEDS ORDERED: AZITHROMYCIN IVPB 500 MG in DEXTROSE 5%-WATER - 250 ML IVPB ONE (13:08)
[2023-02-08] MEDS ORDERED: VANCOMYCIN 1 GRAM (PRE-DOCKED) 1,000 MG/250 ML BAG IVPB ONE (13:23)
[2023-02-08] MEDS ORDERED: PIPERACILLIN/TAZOB 4.5 GM 4.5 GM/100 ML BAG IVPB ONE (13:23)
[2023-02-08] MEDS ORDERED: AZITHROMYCIN IVPB 500 MG/250 ML BAG IVPB ONE (13:24)
[2023-02-08] MEDS ORDERED: ALBUTEROL SO4 0.083% IH SOL 2.5 MG/3 ML VIAL.NEB. NEB PRN (15:42)
[2023-02-08] MEDS ORDERED: diphenhydrAMINE HCL 12.5 MG/5 ML UNIT-DOSE CUPS PEG PRN (17:02)
[2023-02-08] MEDS ORDERED: ACETAMINOPHEN 650 MG SUPP.RECT RC PRN (17:02)
[2023-02-08] MEDS ORDERED: IBUPROFEN 100 MG/5 ML UNIT DOSE CUPS PEG PRN (17:02)
[2023-02-08] MEDS ORDERED: BISACODYL 10 MG SUPP.RECT RC PRN (17:02)
[2023-02-08] MEDS: DEXTROSE 5%-NORMAL SALINE 1,000 ML IV SCH (17:03)
[2023-02-08] MEDS ORDERED: diazePAM RECTAL GEL 10 MG KIT (PRE-CALIBRATED) RC PRN (17:15)
[2023-02-08] MEDS ORDERED: PIPERACILLIN/TAZOB 3.375 GM 3.375 GM in DEXTROSE 5%-WATER - 50 ML IVPB SCH (21:00)
[2023-02-08] MEDS ORDERED: OXcarbazepine 300 MG/5 ML 250 ML BULK BOTTLE PEG SCH (22:00)
[2023-02-08] MEDS ORDERED: PATIENT'S OWN MEDICATION (NON-FORMULARY) (Baclofen [Baclofen] 5 MG Tablet) PEG SCH (22:00)
[2023-02-08] MEDS ORDERED: PATIENT'S OWN MEDICATION (NON-FORMULARY) (Fluticasone Propionate [Flovent Hfa] 110 MCG/INH IH SCH (22:00)
[2023-02-08] MEDS ORDERED: PATIENT'S OWN MEDICATION (NON-FORMULARY) (Baclofen [Baclofen] 20 MG Tablet) PEG SCH (22:00)
[2023-02-08] MEDS: GLYCOPYRROLATE 1 MG TABLET PEG SCH (22:34)
[2023-02-08] MEDS: levETIRAcetam 500 MG/5 ML ORAL SOLUTION (UNIT-DOSE CUPS) PO SCH (22:35)
[2023-02-08] MEDS: LORATADINE 10 MG TABLET GT SCH (22:36)
[2023-02-08] MEDS: MOMETASONE FUROATE 220 MCG/IH INHALER IH SCH (22:36)
[2023-02-08] MEDS: BACLOFEN 10 MG TABLET (FP) PEG SCH ×2 (22:36→22:40)
[2023-02-08] MEDS: PIPERACILLIN/TAZOB 3.375 GM 3.375 GM in DEXTROSE 5%-WATER - 50 ML IVPB SCH (22:37)
[2023-02-08] MEDS ORDERED: diazePAM RECTAL GEL 7.5 MG KIT (PRE-CALIBRATED) RC PRN (22:48)
[2023-02-09] MEDS: FAMOTIDINE 20 MG/2.5 ML ORAL LIQUID PEG SCH ×3 (00:45→22:05)
[2023-02-09 01:33] VITALS: BMI 21.4
[2023-02-09] MEDS: BACLOFEN 10 MG TABLET (FP) PEG SCH ×4 (04:51→22:02)
[2023-02-09] MEDS: PIPERACILLIN/TAZOB 3.375 GM 3.375 GM in DEXTROSE 5%-WATER - 50 ML IVPB SCH ×3 (04:53→17:28)
[2023-02-09] MEDS: OXcarbazepine 300 MG/5 ML UNIT DOSE CUPS PEG SCH ×2 (06:57→17:28)
[2023-02-09] MEDS ORDERED: LANSOPRAZOLE 30 MG PEG SCH (07:00)
[2023-02-09] MEDS: MOMETASONE FUROATE 220 MCG/IH INHALER IH SCH ×2 (09:15→22:09)
[2023-02-09] MEDS: levETIRAcetam 500 MG/5 ML ORAL SOLUTION (UNIT-DOSE CUPS) PO SCH ×2 (09:15→22:07)
[2023-02-09] MEDS: GLYCOPYRROLATE 1 MG TABLET PEG SCH ×2 (09:16→22:06)
[2023-02-09] MEDS ORDERED: ALBUTEROL SO4 2.5/IPRATROPIUM 0.5 INH SOL 3 ML VIAL.NEB. NEB PRN (09:26)
[2023-02-09] MEDS: ENOXAPARIN NA (PORCINE) 40 MG/0.4 ML DISP.SYRIN SQ SCH (09:26)
[2023-02-09] MEDS ORDERED: ACETAMINOPHEN 650 MG/20.3 ML ORAL SOLUTION (CUPS) PEG PRN (10:00)
[2023-02-09 10:08] LABS: BASO % 0.8 % (0-2.0); EOS % 3.9 % (0-4.5); HEMATOCRIT 44.2 % (35.4-49); HEMOGLOBIN 14.2 GM/dL (11.7-16.9); LYMPH % 14.2 % (8-40); MCH 25.1 pg (25.7-33.7); MCHC 32.2 g/dl (32.0-35.9); MEAN PLT VOLUME 9.4 fl (7.5-11.1); MONO % 6.8 % (3.8-10.2); NEUT % 74.3 % (42.8-82.8); PLATELET COUNT 267 10^3/uL (134-434); RBC 5.66 M/mm3 (4.00-5.60); RDW 14.7 % (11.9-15.9); WHITE BLOOD COUNT 7.1 K/mm3 (4.0-10.0)
[2023-02-09 10:24] LABS: POTASSIUM 4.1 mmol/L (3.5-5.1)
[2023-02-09 10:32] LABS: CALCIUM 8.8 mg/dL (8.5-10.1)
[2023-02-09 10:33] LABS: ALBUMIN 3.4 g/dl (3.4-5.0); BLOOD UREA NITROGEN 4.9 mg/dL (7-18); MAGNESIUM 2.4 mg/dL (1.8-2.4)
[2023-02-09 10:36] LABS: CREATININE 0.4 mg/dL (0.55-1.3); PHOSPHOROUS 4.2 mg/dL (2.5-4.9)
[2023-02-09 10:37] LABS: BILIRUBIN,TOTAL 0.4 mg/dL (0.2-1); TOT PROT 6.4 g/dl (6.4-8.2)
[2023-02-09] MEDS: ALBUTEROL SO4 2.5/IPRATROPIUM 0.5 INH SOL 3 ML VIAL.NEB. NEB SCH ×3 (12:00→20:00)
[2023-02-09] MEDS: methylPREDNISolone NA SUCC 40 MG/1 ML VIAL IVPUSH SCH (13:32)
[2023-02-09] MEDS: DEXTROSE 5%-NORMAL SALINE 1,000 ML IV SCH (15:30)
[2023-02-09] MEDS: LORATADINE 10 MG TABLET GT SCH (22:07)
[2023-02-10] MEDS: PIPERACILLIN/TAZOB 3.375 GM 3.375 GM in DEXTROSE 5%-WATER - 50 ML IVPB SCH ×3 (01:29→17:01)
[2023-02-10] MEDS: BACLOFEN 10 MG TABLET (FP) PEG SCH ×4 (06:42→21:58)
[2023-02-10] MEDS: OXcarbazepine 300 MG/5 ML UNIT DOSE CUPS PEG SCH ×2 (06:43→16:54)
[2023-02-10] MEDS: ALBUTEROL SO4 2.5/IPRATROPIUM 0.5 INH SOL 3 ML VIAL.NEB. NEB SCH ×4 (08:05→20:00)
[2023-02-10 08:42] LABS: EOS % 3.3 % (0-4.5); HEMATOCRIT 37.9 % (35.4-49); HEMOGLOBIN 12.8 GM/dL (11.7-16.9); LYMPH % 26.4 % (8-40); MCH 25.5 pg (25.7-33.7); MCHC 33.8 g/dl (32.0-35.9); MEAN CELL VOLUME 75.6 fl (80-96); MONO % 10.3 % (3.8-10.2); PLATELET COUNT 334 10^3/uL (134-434); RBC 5.02 M/mm3 (4.00-5.60); RDW 14.7 % (11.9-15.9); WHITE BLOOD COUNT 5.7 K/mm3 (4.0-10.0)
[2023-02-10 08:59] LABS: POTASSIUM 3.8 mmol/L (3.5-5.1)
[2023-02-10 09:01] LABS: ALBUMIN 3.1 g/dl (3.4-5.0); BLOOD UREA NITROGEN 6.7 mg/dL (7-18); MAGNESIUM 2.2 mg/dL (1.8-2.4)
[2023-02-10 09:04] LABS: CREATININE 0.4 mg/dL (0.55-1.3)
[2023-02-10 09:06] LABS: BILIRUBIN,TOTAL 0.2 mg/dL (0.2-1); TOT PROT 5.6 g/dl (6.4-8.2)
[2023-02-10] MEDS: levETIRAcetam 500 MG/5 ML ORAL SOLUTION (UNIT-DOSE CUPS) PO SCH ×2 (10:14→22:01)
[2023-02-10] MEDS: MOMETASONE FUROATE 220 MCG/IH INHALER IH SCH ×2 (10:15→22:02)
[2023-02-10] MEDS: ENOXAPARIN NA (PORCINE) 40 MG/0.4 ML DISP.SYRIN SQ SCH (10:15)
[2023-02-10] MEDS: methylPREDNISolone NA SUCC 40 MG/1 ML VIAL IVPUSH SCH (10:18)
[2023-02-10] MEDS: GLYCOPYRROLATE 1 MG TABLET PEG SCH ×2 (10:20→22:03)
[2023-02-10] MEDS: FAMOTIDINE 20 MG/2.5 ML ORAL LIQUID PEG SCH ×2 (12:09→22:02)
[2023-02-10] MEDS ORDERED: PIPERACILLIN/TAZOBACTAM 3.375 GM VIAL IVPB ONE (16:44)
[2023-02-10] MEDS: LORATADINE 10 MG TABLET GT SCH (21:58)
[2023-02-11] MEDS: PIPERACILLIN/TAZOB 3.375 GM 3.375 GM in DEXTROSE 5%-WATER - 50 ML IVPB SCH ×3 (02:49→18:31)
[2023-02-11] MEDS: BACLOFEN 10 MG TABLET (FP) PEG SCH ×4 (06:23→21:37)
[2023-02-11] MEDS: OXcarbazepine 300 MG/5 ML UNIT DOSE CUPS PEG SCH ×2 (06:25→17:25)
[2023-02-11] MEDS: ALBUTEROL SO4 2.5/IPRATROPIUM 0.5 INH SOL 3 ML VIAL.NEB. NEB SCH ×4 (08:48→20:05)
[2023-02-11 10:01] LABS: BASO % 1.3 % (0-2.0); EOS % 3.3 % (0-4.5); HEMATOCRIT 38.5 % (35.4-49); HEMOGLOBIN 12.5 GM/dL (11.7-16.9); LYMPH % 30.2 % (8-40); MCHC 32.5 g/dl (32.0-35.9); MEAN CELL VOLUME 76.9 fl (80-96); MEAN PLT VOLUME 8.4 fl (7.5-11.1); MONO % 9.4 % (3.8-10.2); NEUT % 55.8 % (42.8-82.8); PLATELET COUNT 309 10^3/uL (134-434); RDW 14.9 % (11.9-15.9); WHITE BLOOD COUNT 4.7 K/mm3 (4.0-10.0)
[2023-02-11 10:27] LABS: POTASSIUM 3.9 mmol/L (3.5-5.1)
[2023-02-11] MEDS: methylPREDNISolone NA SUCC 40 MG/1 ML VIAL IVPUSH SCH (10:29)
[2023-02-11] MEDS: GLYCOPYRROLATE 1 MG TABLET PEG SCH ×2 (10:29→21:40)
[2023-02-11] MEDS: FAMOTIDINE 20 MG/2.5 ML ORAL LIQUID PEG SCH ×2 (10:29→21:39)
[2023-02-11 10:33] LABS: ALBUMIN 2.9 g/dl (3.4-5.0); MAGNESIUM 2.2 mg/dL (1.8-2.4)
[2023-02-11 10:35] LABS: CREATININE 0.3 mg/dL (0.55-1.3)
[2023-02-11 10:37] LABS: BILIRUBIN,TOTAL 0.2 mg/dL (0.2-1); TOT PROT 5.6 g/dl (6.4-8.2)
[2023-02-11] MEDS: levETIRAcetam 500 MG/5 ML ORAL SOLUTION (UNIT-DOSE CUPS) PO SCH ×2 (10:38→21:39)
[2023-02-11] MEDS: ENOXAPARIN NA (PORCINE) 40 MG/0.4 ML DISP.SYRIN SQ SCH (15:29)
[2023-02-11] MEDS: MOMETASONE FUROATE 220 MCG/IH INHALER IH SCH ×2 (15:29→21:39)
[2023-02-11] MEDS: LORATADINE 10 MG TABLET GT SCH (21:38)
[2023-02-12] MEDS: PIPERACILLIN/TAZOB 3.375 GM 3.375 GM in DEXTROSE 5%-WATER - 50 ML IVPB SCH ×3 (01:43→17:17)
[2023-02-12] MEDS: BACLOFEN 10 MG TABLET (FP) PEG SCH ×4 (06:29→22:12)
[2023-02-12] MEDS: OXcarbazepine 300 MG/5 ML UNIT DOSE CUPS PEG SCH ×2 (06:30→17:17)
[2023-02-12] MEDS: ALBUTEROL SO4 2.5/IPRATROPIUM 0.5 INH SOL 3 ML VIAL.NEB. NEB SCH ×4 (08:13→19:55)
[2023-02-12 09:37] LABS: BASO % 1.2 % (0-2.0); EOS % 2.9 % (0-4.5); HEMATOCRIT 41.8 % (35.4-49); HEMOGLOBIN 13.5 GM/dL (11.7-16.9); LYMPH % 36.3 % (8-40); MCH 25.3 pg (25.7-33.7); MCHC 32.3 g/dl (32.0-35.9); MEAN CELL VOLUME 78.2 fl (80-96); MEAN PLT VOLUME 8.4 fl (7.5-11.1); MONO % 9.8 % (3.8-10.2); NEUT % 49.8 % (42.8-82.8); PLATELET COUNT 360 10^3/uL (134-434); RBC 5.35 M/mm3 (4.00-5.60); RDW 14.6 % (11.9-15.9); WHITE BLOOD COUNT 5.1 K/mm3 (4.0-10.0)
[2023-02-12 10:15] LABS: POTASSIUM 4.1 mmol/L (3.5-5.1)
[2023-02-12 10:23] LABS: ALBUMIN 3.4 g/dl (3.4-5.0); BLOOD UREA NITROGEN 6.2 mg/dL (7-18); CALCIUM 8.7 mg/dL (8.5-10.1); CREATININE 0.4 mg/dL (0.55-1.3); MAGNESIUM 2.3 mg/dL (1.8-2.4)
[2023-02-12 10:25] LABS: BILIRUBIN,TOTAL 0.1 mg/dL (0.2-1); TOT PROT 6.3 g/dl (6.4-8.2)
[2023-02-12] MEDS: levETIRAcetam 500 MG/5 ML ORAL SOLUTION (UNIT-DOSE CUPS) PO SCH ×2 (10:28→23:19)
[2023-02-12] MEDS: FAMOTIDINE 20 MG/2.5 ML ORAL LIQUID PEG SCH ×2 (10:28→22:14)
[2023-02-12] MEDS: GLYCOPYRROLATE 1 MG TABLET PEG SCH ×2 (10:29→22:15)
[2023-02-12] MEDS: ENOXAPARIN NA (PORCINE) 40 MG/0.4 ML DISP.SYRIN SQ SCH (10:29)
[2023-02-12] MEDS: methylPREDNISolone NA SUCC 40 MG/1 ML VIAL IVPUSH SCH (10:29)
[2023-02-12] MEDS: MOMETASONE FUROATE 220 MCG/IH INHALER IH SCH ×2 (10:31→22:17)
[2023-02-12] MEDS: LORATADINE 10 MG TABLET GT SCH (22:12)
[2023-02-13] MEDS: PIPERACILLIN/TAZOB 3.375 GM 3.375 GM in DEXTROSE 5%-WATER - 50 ML IVPB SCH ×3 (02:47→17:20)
[2023-02-13] MEDS: BACLOFEN 10 MG TABLET (FP) PEG SCH ×4 (06:57→22:48)
[2023-02-13] MEDS: OXcarbazepine 300 MG/5 ML UNIT DOSE CUPS PEG SCH ×2 (07:00→17:19)
[2023-02-13] MEDS: ALBUTEROL SO4 2.5/IPRATROPIUM 0.5 INH SOL 3 ML VIAL.NEB. NEB SCH ×4 (07:25→19:28)
[2023-02-13 08:32] LABS: EOS % 0.8 % (0-4.5); HEMATOCRIT 44.7 % (35.4-49); HEMOGLOBIN 14.3 GM/dL (11.7-16.9); MCH 25.1 pg (25.7-33.7); MEAN CELL VOLUME 78.5 fl (80-96); MEAN PLT VOLUME 8.4 fl (7.5-11.1); MONO % 8.3 % (3.8-10.2); NEUT % 63.9 % (42.8-82.8); PLATELET COUNT 314 10^3/uL (134-434); RDW 15.1 % (11.9-15.9); WHITE BLOOD COUNT 7.2 K/mm3 (4.0-10.0)
[2023-02-13 08:48] LABS: POTASSIUM 4.1 mmol/L (3.5-5.1)
[2023-02-13 08:54] LABS: CALCIUM 8.8 mg/dL (8.5-10.1)
[2023-02-13 08:55] LABS: ALBUMIN 3.6 g/dl (3.4-5.0); BLOOD UREA NITROGEN 8.7 mg/dL (7-18); MAGNESIUM 2.4 mg/dL (1.8-2.4)
[2023-02-13 08:58] LABS: CREATININE 0.4 mg/dL (0.55-1.3)
[2023-02-13 09:01] LABS: BILIRUBIN,TOTAL 0.2 mg/dL (0.2-1); TOT PROT 6.7 g/dl (6.4-8.2)
[2023-02-13] MEDS: methylPREDNISolone NA SUCC 40 MG/1 ML VIAL IVPUSH SCH (10:43)
[2023-02-13] MEDS: ENOXAPARIN NA (PORCINE) 40 MG/0.4 ML DISP.SYRIN SQ SCH (10:43)
[2023-02-13] MEDS: GLYCOPYRROLATE 1 MG TABLET PEG SCH ×2 (10:44→22:49)
[2023-02-13] MEDS: FAMOTIDINE 20 MG/2.5 ML ORAL LIQUID PEG SCH ×2 (10:44→22:44)
[2023-02-13] MEDS: levETIRAcetam 500 MG/5 ML ORAL SOLUTION (UNIT-DOSE CUPS) GT SCH ×2 (11:38→22:45)
[2023-02-13] MEDS: MOMETASONE FUROATE 220 MCG/IH INHALER IH SCH ×2 (11:39→22:47)
[2023-02-13] MEDS ORDERED: SODIUM CHLORIDE 1,000 ML IV SCH (16:15)
[2023-02-13] MEDS: LORATADINE 10 MG TABLET GT SCH (22:45)
[2023-02-14] MEDS: PIPERACILLIN/TAZOB 3.375 GM 3.375 GM in DEXTROSE 5%-WATER - 50 ML IVPB SCH ×3 (02:48→17:35)
[2023-02-14] MEDS: BACLOFEN 10 MG TABLET (FP) PEG SCH ×4 (05:24→22:21)
[2023-02-14] MEDS: OXcarbazepine 300 MG/5 ML UNIT DOSE CUPS PEG SCH ×2 (05:24→16:40)
[2023-02-14 07:22] LABS: BASO % 0.9 % (0-2.0); HEMATOCRIT 42.2 % (35.4-49); HEMOGLOBIN 13.7 GM/dL (11.7-16.9); MCH 25.1 pg (25.7-33.7); MCHC 32.4 g/dl (32.0-35.9); MEAN CELL VOLUME 77.4 fl (80-96); MEAN PLT VOLUME 8.5 fl (7.5-11.1); MONO % 8.8 % (3.8-10.2); NEUT % 61.3 % (42.8-82.8); PLATELET COUNT 347 10^3/uL (134-434); RBC 5.46 M/mm3 (4.00-5.60); RDW 15.1 % (11.9-15.9); WHITE BLOOD COUNT 7.3 K/mm3 (4.0-10.0)
[2023-02-14 07:29] LABS: POTASSIUM 4.2 mmol/L (3.5-5.1)
[2023-02-14] MEDS: ALBUTEROL SO4 2.5/IPRATROPIUM 0.5 INH SOL 3 ML VIAL.NEB. NEB SCH (07:30)
[2023-02-14 07:33] LABS: CALCIUM 8.4 mg/dL (8.5-10.1)
[2023-02-14 07:34] LABS: ALBUMIN 3.4 g/dl (3.4-5.0); BLOOD UREA NITROGEN 7.2 mg/dL (7-18); MAGNESIUM 2.1 mg/dL (1.8-2.4)
[2023-02-14 07:37] LABS: CREATININE 0.3 mg/dL (0.55-1.3)
[2023-02-14 07:39] LABS: BILIRUBIN,TOTAL 0.3 mg/dL (0.2-1); TOT PROT 6.3 g/dl (6.4-8.2)
[2023-02-14] MEDS: levETIRAcetam 500 MG/5 ML ORAL SOLUTION (UNIT-DOSE CUPS) GT SCH ×2 (10:33→22:38)
[2023-02-14] MEDS: MOMETASONE FUROATE 220 MCG/IH INHALER IH SCH ×2 (10:35→22:23)
[2023-02-14] MEDS: methylPREDNISolone NA SUCC 40 MG/1 ML VIAL IVPUSH SCH (10:35)
[2023-02-14] MEDS: FAMOTIDINE 20 MG/2.5 ML ORAL LIQUID PEG SCH ×2 (10:37→22:20)
[2023-02-14] MEDS: GLYCOPYRROLATE 1 MG TABLET PEG SCH ×2 (10:38→22:20)
[2023-02-14] MEDS: ENOXAPARIN NA (PORCINE) 40 MG/0.4 ML DISP.SYRIN SQ SCH (10:38)
[2023-02-14] MEDS: LORATADINE 10 MG TABLET GT SCH (22:21)
[2023-02-15] MEDS: PIPERACILLIN/TAZOB 3.375 GM 3.375 GM in DEXTROSE 5%-WATER - 50 ML IVPB SCH ×3 (01:16→17:14)
[2023-02-15] MEDS: BACLOFEN 10 MG TABLET (FP) PEG SCH ×4 (07:10→22:50)
[2023-02-15 07:38] LABS: BASO % 1.1 % (0-2.0); HEMATOCRIT 44.8 % (35.4-49); HEMOGLOBIN 14.5 GM/dL (11.7-16.9); LYMPH % 28.6 % (8-40); MCH 25.2 pg (25.7-33.7); MCHC 32.3 g/dl (32.0-35.9); MEAN PLT VOLUME 8.4 fl (7.5-11.1); MONO % 10.6 % (3.8-10.2); NEUT % 57.7 % (42.8-82.8); PLATELET COUNT 392 10^3/uL (134-434); RBC 5.74 M/mm3 (4.00-5.60); RDW 15.1 % (11.9-15.9); WHITE BLOOD COUNT 7.6 K/mm3 (4.0-10.0)
[2023-02-15 07:52] LABS: POTASSIUM 4.3 mmol/L (3.5-5.1)
[2023-02-15] MEDS: OXcarbazepine 300 MG/5 ML UNIT DOSE CUPS PEG SCH ×2 (07:58→17:15)
[2023-02-15 08:12] LABS: ALBUMIN 3.8 g/dl (3.4-5.0); CALCIUM 8.6 mg/dL (8.5-10.1); MAGNESIUM 2.4 mg/dL (1.8-2.4)
[2023-02-15 08:15] LABS: CREATININE 0.4 mg/dL (0.55-1.3)
[2023-02-15 08:17] LABS: BILIRUBIN,TOTAL 0.3 mg/dL (0.2-1); TOT PROT 6.9 g/dl (6.4-8.2)
[2023-02-15] MEDS: ENOXAPARIN NA (PORCINE) 40 MG/0.4 ML DISP.SYRIN SQ SCH (10:29)
[2023-02-15] MEDS: methylPREDNISolone NA SUCC 40 MG/1 ML VIAL IVPUSH SCH (10:30)
[2023-02-15] MEDS: levETIRAcetam 500 MG/5 ML ORAL SOLUTION (UNIT-DOSE CUPS) GT SCH ×2 (10:30→22:50)
[2023-02-15] MEDS: GLYCOPYRROLATE 1 MG TABLET PEG SCH ×2 (10:30→22:50)
[2023-02-15] MEDS: FAMOTIDINE 20 MG/2.5 ML ORAL LIQUID PEG SCH ×2 (10:30→22:50)
[2023-02-15] MEDS: MOMETASONE FUROATE 220 MCG/IH INHALER IH SCH ×2 (10:31→22:50)
[2023-02-15] MEDS: LORATADINE 10 MG TABLET GT SCH (22:50)
[2023-02-16] MEDS: PIPERACILLIN/TAZOB 3.375 GM 3.375 GM in DEXTROSE 5%-WATER - 50 ML IVPB SCH ×2 (02:27→11:06)
[2023-02-16] MEDS: OXcarbazepine 300 MG/5 ML UNIT DOSE CUPS PEG SCH ×2 (06:24→17:57)
[2023-02-16] MEDS: BACLOFEN 10 MG TABLET (FP) PEG SCH ×4 (07:23→22:59)
[2023-02-16 08:05] LABS: POTASSIUM 4.2 mmol/L (3.5-5.1)
[2023-02-16 08:08] LABS: CALCIUM 9.1 mg/dL (8.5-10.1)
[2023-02-16 08:09] LABS: ALBUMIN 3.7 g/dl (3.4-5.0); BLOOD UREA NITROGEN 11.4 mg/dL (7-18); MAGNESIUM 2.4 mg/dL (1.8-2.4)
[2023-02-16 08:13] LABS: CREATININE 0.4 mg/dL (0.55-1.3)
[2023-02-16 08:14] LABS: BILIRUBIN,TOTAL 0.2 mg/dL (0.2-1); TOT PROT 6.7 g/dl (6.4-8.2)
[2023-02-16 08:19] LABS: BASO % 1.2 % (0-2.0); EOS % 1.9 % (0-4.5); HEMATOCRIT 43.2 % (35.4-49); LYMPH % 39.5 % (8-40); MCH 25.2 pg (25.7-33.7); MCHC 32.6 g/dl (32.0-35.9); MEAN CELL VOLUME 77.3 fl (80-96); MEAN PLT VOLUME 8.8 fl (7.5-11.1); MONO % 12.1 % (3.8-10.2); NEUT % 45.3 % (42.8-82.8); PLATELET COUNT 376 10^3/uL (134-434); RBC 5.58 M/mm3 (4.00-5.60); RDW 14.8 % (11.9-15.9); WHITE BLOOD COUNT 5.9 K/mm3 (4.0-10.0)
[2023-02-16] MEDS: ENOXAPARIN NA (PORCINE) 40 MG/0.4 ML DISP.SYRIN SQ SCH (11:04)
[2023-02-16] MEDS: FAMOTIDINE 20 MG/2.5 ML ORAL LIQUID PEG SCH ×2 (11:05→22:58)
[2023-02-16] MEDS: GLYCOPYRROLATE 1 MG TABLET PEG SCH ×2 (11:06→23:01)
[2023-02-16] MEDS: methylPREDNISolone NA SUCC 40 MG/1 ML VIAL IVPUSH SCH (11:06)
[2023-02-16] MEDS: levETIRAcetam 500 MG/5 ML ORAL SOLUTION (UNIT-DOSE CUPS) GT SCH ×2 (11:22→23:00)
[2023-02-16] MEDS: MOMETASONE FUROATE 220 MCG/IH INHALER IH SCH ×2 (11:23→23:00)
[2023-02-16] MEDS: LORATADINE 10 MG TABLET GT SCH (22:59)
[2023-02-17] MEDS: BACLOFEN 10 MG TABLET (FP) PEG SCH ×4 (05:34→22:45)
[2023-02-17] MEDS: OXcarbazepine 300 MG/5 ML UNIT DOSE CUPS PEG SCH ×2 (05:34→17:47)
[2023-02-17 07:44] LABS: BASO % 0.8 % (0-2.0); EOS % 0.8 % (0-4.5); HEMATOCRIT 41.8 % (35.4-49); HEMOGLOBIN 13.8 GM/dL (11.7-16.9); LYMPH % 29.5 % (8-40); MCH 25.4 pg (25.7-33.7); MCHC 33.2 g/dl (32.0-35.9); MEAN CELL VOLUME 76.5 fl (80-96); MEAN PLT VOLUME 8.5 fl (7.5-11.1); MONO % 10.6 % (3.8-10.2); NEUT % 58.3 % (42.8-82.8); PLATELET COUNT 347 10^3/uL (134-434); RBC 5.46 M/mm3 (4.00-5.60); WHITE BLOOD COUNT 8.3 K/mm3 (4.0-10.0)
[2023-02-17 07:57] LABS: POTASSIUM 3.7 mmol/L (3.5-5.1)
[2023-02-17 08:00] LABS: ALBUMIN 3.6 g/dl (3.4-5.0); BLOOD UREA NITROGEN 10.2 mg/dL (7-18)
[2023-02-17 08:02] LABS: CALCIUM 8.8 mg/dL (8.5-10.1); MAGNESIUM 2.1 mg/dL (1.8-2.4)
[2023-02-17 08:04] LABS: CREATININE 0.4 mg/dL (0.55-1.3)
[2023-02-17 08:05] LABS: BILIRUBIN,TOTAL 0.4 mg/dL (0.2-1); TOT PROT 6.6 g/dl (6.4-8.2)
[2023-02-17] MEDS: MOMETASONE FUROATE 220 MCG/IH INHALER IH SCH ×2 (10:04→22:46)
[2023-02-17] MEDS: levETIRAcetam 500 MG/5 ML ORAL SOLUTION (UNIT-DOSE CUPS) GT SCH ×2 (10:04→23:01)
[2023-02-17] MEDS: FAMOTIDINE 20 MG/2.5 ML ORAL LIQUID PEG SCH ×2 (10:04→22:43)
[2023-02-17] MEDS: ENOXAPARIN NA (PORCINE) 40 MG/0.4 ML DISP.SYRIN SQ SCH (10:04)
[2023-02-17] MEDS: methylPREDNISolone NA SUCC 40 MG/1 ML VIAL IVPUSH SCH (10:04)
[2023-02-17] MEDS: GLYCOPYRROLATE 1 MG TABLET PEG SCH ×2 (10:04→22:44)
[2023-02-17] MEDS: LORATADINE 10 MG TABLET GT SCH (22:45)
[2023-02-18] MEDS: BACLOFEN 10 MG TABLET (FP) PEG SCH ×4 (05:18→22:49)
[2023-02-18] MEDS: OXcarbazepine 300 MG/5 ML UNIT DOSE CUPS PEG SCH ×2 (05:19→17:19)
[2023-02-18 09:14] LABS: BASO % 0.7 % (0-2.0); EOS % 1.3 % (0-4.5); HEMATOCRIT 47.7 % (35.4-49); HEMOGLOBIN 15.5 GM/dL (11.7-16.9); LYMPH % 34.3 % (8-40); MCH 25.4 pg (25.7-33.7); MCHC 32.4 g/dl (32.0-35.9); MEAN CELL VOLUME 78.6 fl (80-96); MEAN PLT VOLUME 9.3 fl (7.5-11.1); MONO % 9.8 % (3.8-10.2); NEUT % 53.9 % (42.8-82.8); PLATELET COUNT 335 10^3/uL (134-434); RBC 6.07 M/mm3 (4.00-5.60); RDW 15.1 % (11.9-15.9); WHITE BLOOD COUNT 6.7 K/mm3 (4.0-10.0)
[2023-02-18 09:29] LABS: POTASSIUM 4.2 mmol/L (3.5-5.1)
[2023-02-18 09:41] LABS: CALCIUM 9.4 mg/dL (8.5-10.1)
[2023-02-18 09:42] LABS: MAGNESIUM 2.3 mg/dL (1.8-2.4)
[2023-02-18 09:44] LABS: CREATININE 0.4 mg/dL (0.55-1.3)
[2023-02-18 09:45] LABS: BLOOD UREA NITROGEN 11.4 mg/dL (7-18)
[2023-02-18 09:46] LABS: BILIRUBIN,TOTAL 0.3 mg/dL (0.2-1); TOT PROT 7.7 g/dl (6.4-8.2)
[2023-02-18] MEDS: MOMETASONE FUROATE 220 MCG/IH INHALER IH SCH ×2 (11:16→22:51)
[2023-02-18] MEDS: ENOXAPARIN NA (PORCINE) 40 MG/0.4 ML DISP.SYRIN SQ SCH (11:17)
[2023-02-18] MEDS: FAMOTIDINE 20 MG/2.5 ML ORAL LIQUID PEG SCH ×2 (11:17→22:50)
[2023-02-18] MEDS: GLYCOPYRROLATE 1 MG TABLET PEG SCH ×2 (11:17→22:50)
[2023-02-18] MEDS: levETIRAcetam 500 MG/5 ML ORAL SOLUTION (UNIT-DOSE CUPS) GT SCH ×2 (12:27→23:46)
[2023-02-18] MEDS: LORATADINE 10 MG TABLET GT SCH (22:49)
[2023-02-19] MEDS: BACLOFEN 10 MG TABLET (FP) PEG SCH ×2 (05:17→14:49)
[2023-02-19] MEDS: OXcarbazepine 300 MG/5 ML UNIT DOSE CUPS PEG SCH (05:18)
[2023-02-19 08:59] LABS: BASO % 1.3 % (0-2.0); EOS % 3.4 % (0-4.5); HEMOGLOBIN 14.2 GM/dL (11.7-16.9); LYMPH % 27.9 % (8-40); MCHC 32.2 g/dl (32.0-35.9); MEAN CELL VOLUME 77.7 fl (80-96); MEAN PLT VOLUME 9.4 fl (7.5-11.1); MONO % 11.4 % (3.8-10.2); PLATELET COUNT 359 10^3/uL (134-434); RBC 5.66 M/mm3 (4.00-5.60); RDW 15.1 % (11.9-15.9); WHITE BLOOD COUNT 6.6 K/mm3 (4.0-10.0)
[2023-02-19 09:15] LABS: POTASSIUM 4.2 mmol/L (3.5-5.1)
[2023-02-19 09:18] LABS: CALCIUM 8.8 mg/dL (8.5-10.1)
[2023-02-19 09:19] LABS: ALBUMIN 3.8 g/dl (3.4-5.0); BLOOD UREA NITROGEN 9.9 mg/dL (7-18); MAGNESIUM 2.3 mg/dL (1.8-2.4)
[2023-02-19 09:22] LABS: CREATININE 0.4 mg/dL (0.55-1.3)
[2023-02-19 09:24] LABS: BILIRUBIN,TOTAL 0.2 mg/dL (0.2-1); TOT PROT 6.6 g/dl (6.4-8.2)
[2023-02-19] MEDS: MOMETASONE FUROATE 220 MCG/IH INHALER IH SCH (11:20)
[2023-02-19] MEDS: FAMOTIDINE 20 MG/2.5 ML ORAL LIQUID PEG SCH (11:21)
[2023-02-19] MEDS: ENOXAPARIN NA (PORCINE) 40 MG/0.4 ML DISP.SYRIN SQ SCH (11:21)
[2023-02-19] MEDS: levETIRAcetam 500 MG/5 ML ORAL SOLUTION (UNIT-DOSE CUPS) GT SCH (12:00)
[2023-02-19] MEDS: GLYCOPYRROLATE 1 MG TABLET PEG SCH (12:00)
[2023-02-19 14:11] VITALS: BP 120/71; PULSE 104; RESP 18; TEMP 98.1
== END 2023-02-19 16:00 | DRG 193 ==
LOC: JER 10:32 → JERBED 16:17 → J8W 20:49 → J7W 02-12 16:29
PROVIDERS: ADMIT Internal Medicine; ATTEND Nurse Practitioner Acute Care
DX: J18.9 Pneumonia, unspecified organism (principal); J96.01 Acute respiratory failure with hypoxia; R53.2 Functional quadriplegia; E46 Unspecified protein-calorie malnutrition; Z68.21 Body mass index [BMI] 21.0-21.9, adult; Z93.1 Gastrostomy status; G80.9 Cerebral palsy, unspecified; K21.9 Gastro-esophageal reflux disease without esophagitis; J45.909 Unspecified asthma, uncomplicated; R56.9 Unspecified convulsions
CPT/HCPCS: 0241U-QW; 36415; 71045-TC-FY; 80053; 81003; 82553; 82803; 83605; 83735; 84100; 85025; 85610; 85730; 86850; 86900; 86901; 87040; 87086; 87635; 93005; 93010; 94640; 99285-25; J0475

== ENCOUNTER 2023-03-16 19:42 | Emergency (ER) | payer OTHER ==
[2023-03-16 20:06] VITALS: BMI 23.4
[2023-03-16 21:59] LABS: BASO % 0.9 % (0-2.0); EOS % 2.4 % (0-4.5); HEMATOCRIT 45.2 % (35.4-49); HEMOGLOBIN 14.8 GM/dL (11.7-16.9); LYMPH % 10.2 % (8-40); MCH 25.4 pg (25.7-33.7); MCHC 32.7 g/dl (32.0-35.9); MEAN CELL VOLUME 77.6 fl (80-96); MEAN PLT VOLUME 8.3 fl (7.5-11.1); MONO % 7.1 % (3.8-10.2); NEUT % 79.4 % (42.8-82.8); PLATELET COUNT 407 10^3/uL (134-434); RBC 5.82 M/mm3 (4.00-5.60); RDW 15.4 % (11.9-15.9); WHITE BLOOD COUNT 10.5 K/mm3 (4.0-10.0)
[2023-03-16] MEDS ORDERED: ALBUTEROL SO4 2.5/IPRATROPIUM 0.5 INH SOL 3 ML VIAL.NEB. NEB SCH (22:00)
[2023-03-16 22:03] LABS: EPI CELLS 15 /uL (0-25.1); HYALINE CASTS 2 /uL (0-3.1); PH,URINE 7.5 (5.0-8.0); URINE APPEARANCE CLOUDY; URINE BACTERIA 10 /uL (0-1359); URINE BILIRUBIN NEGATIVE (NEGATIVE); URINE COLOR DK YELLOW; URINE GLUCOSE (UA) NEGATIVE (NEGATIVE); URINE KETONE TRACE (NEGATIVE); URINE LEUK ESTERASE TRACE (NEGATIVE); URINE NITRITE NEGATIVE (NEGATIVE); URINE PROTEIN 1+ (NEGATIVE); URINE WBC 25 /uL (0-25.8)
[2023-03-16 22:05] LABS: INR 1.16 (0.83-1.09); PROTHROMBIN TIME (PATIENT) 13.4 SEC (9.7-13.0)
[2023-03-16 22:20] LABS: CHLORIDE 102 mmol/L (98-107); SODIUM 136 mmol/L (136-145)
[2023-03-16] MEDS ORDERED: ALBUTEROL SO4 2.5/IPRATROPIUM 0.5 INH SOL 3 ML VIAL.NEB. NEB ONE (22:21)
[2023-03-16 22:23] LABS: ANION GAP 8 MMOL/L (8-16); BLOOD UREA NITROGEN 8.5 mg/dL (7-18); CALCIUM 8.9 mg/dL (8.5-10.1); CO2 27 mmol/L (21-32); GLUCOSE,RANDOM 90 mg/dL (74-106); MAGNESIUM 2.3 mg/dL (1.8-2.4)
[2023-03-16 22:23] LABS: VENOUS BASE EXCESS -0.2 mmol/L (-2-2); VENOUS O2 SATURATION 94.2 % (70-80); VENOUS PCO2 40.6 mmHg (38-52); VENOUS PH 7.4 (7.310-7.410)
[2023-03-16 22:24] LABS: ALBUMIN 3.9 g/dl (3.4-5.0)
[2023-03-16 22:27] LABS: CREATININE 0.4 mg/dL (0.55-1.3); SGOT/AST 30 U/L (15-37); SGPT/ALT 52 U/L (13-61)
[2023-03-16 22:28] LABS: BILIRUBIN,TOTAL 0.2 mg/dL (0.2-1); TOT PROT 7.3 g/dl (6.4-8.2)
[2023-03-16 22:29] LABS: ALK PHOS 141 U/L (45-117)
[2023-03-17 07:26] VITALS: RESP 20
[2023-03-17 12:21] VITALS: BP 118/69; PULSE 99; TEMP 97.6
== END 2023-03-17 12:21 ==
LOC: JER 19:42
PROC: 3E0F7GC Introduction of Other Therapeutic Substance into Respiratory Tract, Via Natural or Artificial Opening (ICD-10-PCS; principal; 2023-03-16)
DX: R00.0 Tachycardia, unspecified (principal); Z20.822 Contact with and (suspected) exposure to COVID-19
CPT/HCPCS: 0241U-QW; 36415; 71045-TC-FY; 80053; 81003; 82550; 82553; 82803; 83605; 83735; 84443; 84484; 85025; 85610; 85730; 86850; 86900; 86901; 87086; 93005; 93010; 99285-25

== ENCOUNTER 2023-08-19 20:38 | Inpatient (IN) | payer OTHER ==
[2023-08-19] MEDS: diazePAM RECTAL GEL 7.5 MG KIT (PRE-CALIBRATED) RC STA (21:25)
[2023-08-19 21:27] LABS: BASO % 0.5 % (0-2.0); EOS % 0.1 % (0-4.5); HEMATOCRIT 40.8 % (35.4-49); HEMOGLOBIN 13.1 GM/dL (11.7-16.9); LYMPH % 5.4 % (8-40); MCH 21.9 pg (25.7-33.7); MCHC 32.2 g/dl (32.0-35.9); MEAN CELL VOLUME 68.2 fl (80-96); MEAN PLT VOLUME 8.1 fl (7.5-11.1); MONO % 5.8 % (3.8-10.2); NEUT % 88.2 % (42.8-82.8); PLATELET COUNT 645 10^3/uL (134-434); RBC 5.98 M/mm3 (4.00-5.60); RDW 16.5 % (11.9-15.9); WHITE BLOOD COUNT 13.6 K/mm3 (4.0-10.0)
[2023-08-19] MEDS ORDERED: ACETAMINOPHEN INJECTION 100 ML IVPB ONE (21:27)
[2023-08-19 21:28] LABS: VENOUS O2 SATURATION 89.4 % (70-80); VENOUS PCO2 45.6 mmHg (38-52); VENOUS PH 7.276 (7.310-7.410)
[2023-08-19 21:33] LABS: INR 1.28 (0.83-1.09); PROTHROMBIN TIME (PATIENT) 14.8 SEC (9.7-13.0)
[2023-08-19] MEDS: SODIUM CHLORIDE 0.9% 500 ML INFUS.BAG IV ONE (21:34)
[2023-08-19] MEDS: ACETAMINOPHEN 1000 MG/100 ML BAG IVPB ONE (21:34)
[2023-08-19 21:35] LABS: ACTIVATED PTT 35.1 SECONDS (25.2-36.5)
[2023-08-19 21:46] LABS: ANISOCYTOSIS 1+; MACROCYTOSIS 0; POTASSIUM 3.9 mmol/L (3.5-5.1)
[2023-08-19 21:52] LABS: ALBUMIN 4.1 g/dl (3.4-5.0); BLOOD UREA NITROGEN 11.9 mg/dL (7-18); CALCIUM 9.3 mg/dL (8.5-10.1)
[2023-08-19 21:54] LABS: CREATININE 0.5 mg/dL (0.55-1.3)
[2023-08-19 21:55] LABS: BILIRUBIN,TOTAL 0.2 mg/dL (0.2-1)
[2023-08-19 21:56] LABS: TOT PROT 7.9 g/dl (6.4-8.2)
[2023-08-19 22:18] LABS: LACTIC ACID 2.2 mmol/L (0.4-2.0)
[2023-08-19 22:54] LABS: EPI CELLS >36 /uL (0-25.1); HYALINE CASTS 6 /uL (0-3.1); URINE APPEARANCE CLEAR; URINE BACTERIA 15 /uL (0-1359); URINE BILIRUBIN NEGATIVE (NEGATIVE); URINE COLOR YELLOW; URINE GLUCOSE (UA) NEGATIVE (NEGATIVE); URINE KETONE NEGATIVE (NEGATIVE); URINE LEUK ESTERASE NEGATIVE (NEGATIVE); URINE NITRITE NEGATIVE (NEGATIVE); URINE PROTEIN 1+ (NEGATIVE); URINE UROBILINOGEN 0.2 mg/dL (0.2-1.0); URINE WBC 52 /uL (0-25.8)
[2023-08-20 00:04] LABS: URINE RBC 25.2 /uL (0-23.9)
[2023-08-20] MEDS: SODIUM CHLORIDE 0.9% 500 ML INFUS.BAG IV ONE (00:22)
[2023-08-20] MEDS ORDERED: PIPERACILLIN/TAZOB 3.375 GM 3.375 GM/50 ML BAG IVPB ONE ×3 (03:59→18:44)
[2023-08-20] MEDS ORDERED: VANCOMYCIN 1 GRAM (PRE-DOCKED) 1,000 MG/250 ML BAG IVPB ONE (03:59)
[2023-08-20] MEDS: PIPERACILLIN/TAZOB 3.375 GM 3.375 GM in DEXTROSE 5%-WATER - 50 ML IVPB ONE (04:42)
[2023-08-20] MEDS: VANCOMYCIN 1,000 MG in DEXTROSE 5%-WATER - 250 ML IVPB ONE (04:59)
[2023-08-20] MEDS ORDERED: diazePAM RECTAL GEL 10 MG KIT (PRE-CALIBRATED) RC PRN (05:28)
[2023-08-20] MEDS ORDERED: ALBUTEROL SO4 HFA INHALER IH PRN (05:31)
[2023-08-20] MEDS ORDERED: ZINC OXIDE 20% TOPICAL OINTMENT 30 GM TUBE TP PRN (05:45)
[2023-08-20] MEDS ORDERED: SODIUM CHLORIDE 1,000 ML IV SCH (06:00)
[2023-08-20] MEDS ORDERED: BACLOFEN 10 MG TABLET (FP) ONE ×3 (06:03→19:03)
[2023-08-20] MEDS: PATIENT'S OWN MEDICATION (NON-FORMULARY) (Baclofen [Baclofen] 20 MG Tablet) PEG SCH (06:21)
[2023-08-20] MEDS: SODIUM CHLORIDE 1,000 ML IV SCH (06:21)
[2023-08-20] MEDS: levETIRAcetam 500 MG/5 ML INJECTION VIAL IVPB ONE (07:31)
[2023-08-20] MEDS ORDERED: ENOXAPARIN NA (PORCINE) 40 MG/0.4 ML DISP.SYRIN SQ ONE (08:59)
[2023-08-20 09:06] LABS: BASO % 0.6 % (0-2.0); EOS % 0.6 % (0-4.5); HEMATOCRIT 35.5 % (35.4-49); HEMOGLOBIN 11.5 GM/dL (11.7-16.9); LYMPH % 9.3 % (8-40); MCH 22.4 pg (25.7-33.7); MCHC 32.3 g/dl (32.0-35.9); MEAN CELL VOLUME 69.4 fl (80-96); MONO % 9.5 % (3.8-10.2); PLATELET COUNT 426 10^3/uL (134-434); RBC 5.11 M/mm3 (4.00-5.60); RDW 16.1 % (11.9-15.9); WHITE BLOOD COUNT 9.8 K/mm3 (4.0-10.0)
[2023-08-20] MEDS: LACTOBACILLUS ACIDOPHILUS 1 TABLET PEG SCH (09:21)
[2023-08-20] MEDS: ENOXAPARIN NA (PORCINE) 40 MG/0.4 ML DISP.SYRIN SQ SCH (09:22)
[2023-08-20] MEDS: FAMOTIDINE 20 MG/2.5 ML ORAL LIQUID PEG SCH (09:22)
[2023-08-20] MEDS: levETIRAcetam 500 MG/5 ML ORAL SOLUTION (UNIT-DOSE CUPS) GT SCH (09:22)
[2023-08-20] MEDS: OXcarbazepine 300 MG/5 ML 250 ML BULK BOTTLE PEG SCH ×2 (09:22→17:30)
[2023-08-20] MEDS ORDERED: ELECTROLYTE,ORAL 118 ML SOLUTION PO SCH (10:00)
[2023-08-20 10:08] LABS: POTASSIUM 4.4 mmol/L (3.5-5.1)
[2023-08-20 10:15] LABS: CALCIUM 8.5 mg/dL (8.5-10.1)
[2023-08-20 10:16] LABS: MAGNESIUM 2.4 mg/dL (1.8-2.4)
[2023-08-20 10:19] LABS: CREATININE 0.3 mg/dL (0.55-1.3); PHOSPHOROUS 3.8 mg/dL (2.5-4.9)
[2023-08-20 10:21] LABS: BILIRUBIN,TOTAL 0.3 mg/dL (0.2-1); TOT PROT 6.3 g/dl (6.4-8.2)
[2023-08-20 10:43] LABS: BLOOD UREA NITROGEN 7.4 mg/dL (7-18)
[2023-08-20 10:46] LABS: ALBUMIN 3.3 g/dl (3.4-5.0)
[2023-08-20] MEDS: PIPERACILLIN/TAZOB 4.5 GM 4.5 GM in DEXTROSE 5%-WATER 100 ML IVPB SCH (12:15)
[2023-08-20] MEDS: GLYCOPYRROLATE 1 MG TABLET PEG SCH (12:15)
[2023-08-20] MEDS ORDERED: levETIRAcetam 500 MG/5 ML ORAL SOLUTION (UNIT-DOSE CUPS) PEG SCH (14:05)
[2023-08-20] MEDS: AMINO ACIDS 4.25%/D5W 1,000 ML IV SCH (16:30)
[2023-08-20] MEDS: BACLOFEN 10 MG TABLET (FP) PEG SCH ×2 (18:00→22:01)
[2023-08-20] MEDS ORDERED: PIPERACILLIN/TAZOB 4.5 GM 4.5 GM/100 ML BAG IVPB ONE (18:48)
[2023-08-20] MEDS: VANCOMYCIN 750 MG in DEXTROSE 5%-WATER - 150 ML IVPB SCH (19:17)
[2023-08-20] MEDS ORDERED: INSULIN (NOVOLOG) ASPART 100 UNITS/ML 10ML VIAL ONE (21:36)
[2023-08-20] MEDS: levETIRAcetam 500 MG/5 ML ORAL SOLUTION (UNIT-DOSE CUPS) PEG SCH (22:02)
[2023-08-20] MEDS: LORATADINE 10 MG TABLET PEG SCH (22:02)
[2023-08-21] MEDS ORDERED: VANCOMYCIN/WATER FOR INJ (PEG) 750 MG/150 ML BAG IVPB SCH (05:00)
[2023-08-21] MEDS: LACTOBACILLUS ACIDOPHILUS 1 TABLET PEG SCH (06:00)
[2023-08-21 06:48] LABS: BASO % 2.2 % (0-2.0); EOS % 4.8 % (0-4.5); HEMATOCRIT 36.8 % (35.4-49); HEMOGLOBIN 11.4 GM/dL (11.7-16.9); LYMPH % 16.8 % (8-40); MCH 21.9 pg (25.7-33.7); MEAN CELL VOLUME 70.6 fl (80-96); MONO % 10.3 % (3.8-10.2); NEUT % 65.9 % (42.8-82.8); PLATELET COUNT 379 10^3/uL (134-434); RBC 5.22 M/mm3 (4.00-5.60); WHITE BLOOD COUNT 5.8 K/mm3 (4.0-10.0)
[2023-08-21 07:02] LABS: POTASSIUM 3.4 mmol/L (3.5-5.1)
[2023-08-21 07:05] LABS: BLOOD UREA NITROGEN 5.4 mg/dL (7-18); CALCIUM 8.1 mg/dL (8.5-10.1)
[2023-08-21 07:07] LABS: MAGNESIUM 1.8 mg/dL (1.8-2.4)
[2023-08-21 07:08] LABS: CREATININE 0.3 mg/dL (0.55-1.3)
[2023-08-21 07:09] LABS: BILIRUBIN,TOTAL 0.5 mg/dL (0.2-1); TOT PROT 5.8 g/dl (6.4-8.2)
[2023-08-21] MEDS: POTASSIUM CHLORIDE ORAL LIQUID 20 MEQ/15 ML GT ONE (09:13)
[2023-08-21] MEDS: PIPERACILLIN/TAZOB 4.5 GM 4.5 GM in DEXTROSE 5%-WATER 100 ML IVPB SCH (14:11)
[2023-08-21] MEDS: ALBUTEROL SO4 2.5/IPRATROPIUM 0.5 INH SOL 3 ML VIAL.NEB. NEB SCH (15:15)
[2023-08-22 10:12] LABS: BASO % 1.4 % (0-2.0); EOS % 5.7 % (0-4.5); HEMATOCRIT 34.4 % (35.4-49); HEMOGLOBIN 10.8 GM/dL (11.7-16.9); LYMPH % 23.6 % (8-40); MCH 22.2 pg (25.7-33.7); MCHC 31.5 g/dl (32.0-35.9); MEAN CELL VOLUME 70.5 fl (80-96); MEAN PLT VOLUME 8.3 fl (7.5-11.1); MONO % 9.7 % (3.8-10.2); NEUT % 59.6 % (42.8-82.8); PLATELET COUNT 425 10^3/uL (134-434); RBC 4.88 M/mm3 (4.00-5.60); RDW 15.9 % (11.9-15.9); WHITE BLOOD COUNT 4.9 K/mm3 (4.0-10.0)
[2023-08-22 10:42] LABS: POTASSIUM 3.3 mmol/L (3.5-5.1)
[2023-08-22 10:44] LABS: BLOOD UREA NITROGEN 3.5 mg/dL (7-18); CALCIUM 8.3 mg/dL (8.5-10.1); MAGNESIUM 1.8 mg/dL (1.8-2.4)
[2023-08-22 10:47] LABS: CREATININE 0.3 mg/dL (0.55-1.3)
[2023-08-22 10:49] LABS: BILIRUBIN,TOTAL 0.2 mg/dL (0.2-1); TOT PROT 5.8 g/dl (6.4-8.2)
[2023-08-22] MEDS: methylPREDNISolone NA SUCC 40 MG/1 ML VIAL IVPUSH SCH (11:36)
[2023-08-22] MEDS: POTASSIUM CHLORIDE ORAL LIQUID 20 MEQ/15 ML GT SCH (12:27)
[2023-08-22] MEDS: MAGNESIUM OXIDE 400 MG TABLET (FP) GT SCH (14:43)
[2023-08-22] MEDS: MAGNESIUM OXIDE 400 MG TABLET (FP) GT ONE (14:46)
[2023-08-23 08:34] LABS: BASO % 1.1 % (0-2.0); EOS % 3.9 % (0-4.5); HEMATOCRIT 32.9 % (35.4-49); HEMOGLOBIN 10.7 GM/dL (11.7-16.9); LYMPH % 24.2 % (8-40); MCH 22.4 pg (25.7-33.7); MCHC 32.4 g/dl (32.0-35.9); MEAN CELL VOLUME 69.2 fl (80-96); MEAN PLT VOLUME 8.1 fl (7.5-11.1); MONO % 11.4 % (3.8-10.2); NEUT % 59.4 % (42.8-82.8); PLATELET COUNT 355 10^3/uL (134-434); RBC 4.75 M/mm3 (4.00-5.60); RDW 15.7 % (11.9-15.9)
[2023-08-23 08:51] LABS: POTASSIUM 3.7 mmol/L (3.5-5.1)
[2023-08-23 08:58] LABS: ALBUMIN 3.2 g/dl (3.4-5.0); CALCIUM 8.5 mg/dL (8.5-10.1); MAGNESIUM 2.2 mg/dL (1.8-2.4)
[2023-08-23 08:59] LABS: BLOOD UREA NITROGEN 5.5 mg/dL (7-18)
[2023-08-23 09:01] LABS: CREATININE 0.3 mg/dL (0.55-1.3)
[2023-08-23 09:03] LABS: BILIRUBIN,TOTAL 0.2 mg/dL (0.2-1); TOT PROT 6.1 g/dl (6.4-8.2)
[2023-08-23 23:06] VITALS: BMI 19.1
[2023-08-24] MEDS: OXcarbazepine 300 MG/5 ML UNIT DOSE CUPS PEG SCH (06:03)
[2023-08-24 07:43] LABS: BASO % 1.3 % (0-2.0); EOS % 3.5 % (0-4.5); HEMOGLOBIN 10.8 GM/dL (11.7-16.9); LYMPH % 28.8 % (8-40); MCH 21.6 pg (25.7-33.7); MEAN CELL VOLUME 69.8 fl (80-96); MEAN PLT VOLUME 8.1 fl (7.5-11.1); MONO % 8.4 % (3.8-10.2); PLATELET COUNT 374 10^3/uL (134-434); RBC 5.01 M/mm3 (4.00-5.60); RDW 16.5 % (11.9-15.9); WHITE BLOOD COUNT 5.2 K/mm3 (4.0-10.0)
[2023-08-24 07:54] LABS: POTASSIUM 3.4 mmol/L (3.5-5.1)
[2023-08-24 08:02] LABS: CALCIUM 8.9 mg/dL (8.5-10.1)
[2023-08-24 08:03] LABS: ALBUMIN 3.3 g/dl (3.4-5.0); MAGNESIUM 2.3 mg/dL (1.8-2.4)
[2023-08-24 08:08] LABS: BILIRUBIN,TOTAL 0.2 mg/dL (0.2-1); BLOOD UREA NITROGEN 6.6 mg/dL (7-18); CREATININE 0.3 mg/dL (0.55-1.3); TOT PROT 6.3 g/dl (6.4-8.2)
[2023-08-24 09:32] LABS: ANISOCYTOSIS 2+; MACROCYTOSIS 0
[2023-08-24] MEDS: POTASSIUM CHLORIDE ORAL LIQUID 20 MEQ/15 ML PO ONE (23:07)
[2023-08-25 07:52] LABS: BASO % 1.8 % (0-2.0); EOS % 2.2 % (0-4.5); HEMATOCRIT 34.4 % (35.4-49); HEMOGLOBIN 10.7 GM/dL (11.7-16.9); LYMPH % 42.1 % (8-40); MCH 21.8 pg (25.7-33.7); MCHC 31.1 g/dl (32.0-35.9); MEAN CELL VOLUME 70.1 fl (80-96); MEAN PLT VOLUME 8.2 fl (7.5-11.1); MONO % 11.6 % (3.8-10.2); NEUT % 42.3 % (42.8-82.8); PLATELET COUNT 368 10^3/uL (134-434); RDW 16.6 % (11.9-15.9); WHITE BLOOD COUNT 4.7 K/mm3 (4.0-10.0)
[2023-08-25 08:20] LABS: POTASSIUM 3.8 mmol/L (3.5-5.1)
[2023-08-25 08:23] LABS: CALCIUM 9.3 mg/dL (8.5-10.1)
[2023-08-25 08:24] LABS: ALBUMIN 3.3 g/dl (3.4-5.0); BLOOD UREA NITROGEN 8.5 mg/dL (7-18); MAGNESIUM 2.6 mg/dL (1.8-2.4)
[2023-08-25 08:27] LABS: CREATININE 0.4 mg/dL (0.55-1.3)
[2023-08-25 08:28] LABS: BILIRUBIN,TOTAL 0.4 mg/dL (0.2-1); TOT PROT 6.3 g/dl (6.4-8.2)
[2023-08-26 07:33] LABS: BASO % 0.9 % (0-2.0); EOS % 0.2 % (0-4.5); HEMOGLOBIN 13.9 GM/dL (11.7-16.9); LYMPH % 12.2 % (8-40); MCHC 31.6 g/dl (32.0-35.9); MEAN CELL VOLUME 69.8 fl (80-96); MEAN PLT VOLUME 8.5 fl (7.5-11.1); MONO % 6.8 % (3.8-10.2); NEUT % 79.9 % (42.8-82.8); PLATELET COUNT 519 10^3/uL (134-434); RBC 6.31 M/mm3 (4.00-5.60); RDW 16.8 % (11.9-15.9); WHITE BLOOD COUNT 13.7 K/mm3 (4.0-10.0)
[2023-08-26 07:35] LABS: POTASSIUM 4.4 mmol/L (3.5-5.1)
[2023-08-26 07:37] LABS: CALCIUM 9.5 mg/dL (8.5-10.1)
[2023-08-26 07:38] LABS: BLOOD UREA NITROGEN 9.6 mg/dL (7-18); MAGNESIUM 2.7 mg/dL (1.8-2.4)
[2023-08-26 07:41] LABS: CREATININE 0.4 mg/dL (0.55-1.3); PHOSPHOROUS 5.6 mg/dL (2.5-4.9)
[2023-08-26 07:42] LABS: TOT PROT 8.1 g/dl (6.4-8.2)
[2023-08-26 07:43] LABS: BILIRUBIN,TOTAL 0.4 mg/dL (0.2-1)
[2023-08-26 07:46] LABS: ALBUMIN 4.4 g/dl (3.4-5.0)
[2023-08-27 08:16] LABS: BASO % 1.3 % (0-2.0); EOS % 0.9 % (0-4.5); HEMATOCRIT 37.9 % (35.4-49); LYMPH % 31.8 % (8-40); MCH 22.2 pg (25.7-33.7); MCHC 31.8 g/dl (32.0-35.9); MEAN CELL VOLUME 69.8 fl (80-96); MEAN PLT VOLUME 8.7 fl (7.5-11.1); MONO % 10.5 % (3.8-10.2); NEUT % 55.5 % (42.8-82.8); PLATELET COUNT 419 10^3/uL (134-434); RBC 5.42 M/mm3 (4.00-5.60); RDW 16.7 % (11.9-15.9); WHITE BLOOD COUNT 8.6 K/mm3 (4.0-10.0)
[2023-08-27 08:32] LABS: POTASSIUM 4.6 mmol/L (3.5-5.1)
[2023-08-27 08:35] LABS: CALCIUM 9.1 mg/dL (8.5-10.1)
[2023-08-27 08:36] LABS: ALBUMIN 3.6 g/dl (3.4-5.0); MAGNESIUM 2.8 mg/dL (1.8-2.4)
[2023-08-27 08:39] LABS: CREATININE 0.3 mg/dL (0.55-1.3)
[2023-08-27 08:41] LABS: BILIRUBIN,TOTAL 0.2 mg/dL (0.2-1); TOT PROT 7.1 g/dl (6.4-8.2)
[2023-08-27] MEDS: levETIRAcetam 500 MG/5 ML INJECTION VIAL IVPB SCH (22:36)
[2023-08-27] MEDS: AMINO ACIDS 4.25%/D5W 1,000 ML IV SCH (22:46)
[2023-08-28 07:56] LABS: POTASSIUM 4.2 mmol/L (3.5-5.1)
[2023-08-28 08:28] LABS: CALCIUM 9.8 mg/dL (8.5-10.1)
[2023-08-28 08:29] LABS: ALBUMIN 4.2 g/dl (3.4-5.0); BLOOD UREA NITROGEN 15.6 mg/dL (7-18); MAGNESIUM 2.5 mg/dL (1.8-2.4)
[2023-08-28 08:32] LABS: CREATININE 0.6 mg/dL (0.55-1.3); PHOSPHOROUS 4.9 mg/dL (2.5-4.9)
[2023-08-28 08:33] LABS: BILIRUBIN,TOTAL 0.4 mg/dL (0.2-1); TOT PROT 7.8 g/dl (6.4-8.2)
[2023-08-28 09:27] LABS: BASO % 0.6 % (0-2.0); EOS % 0.2 % (0-4.5); HEMATOCRIT 42.9 % (35.4-49); HEMOGLOBIN 13.6 GM/dL (11.7-16.9); LYMPH % 12.2 % (8-40); MCHC 31.8 g/dl (32.0-35.9); MEAN CELL VOLUME 69.2 fl (80-96); MEAN PLT VOLUME 8.2 fl (7.5-11.1); PLATELET COUNT 470 10^3/uL (134-434); RBC 6.19 M/mm3 (4.00-5.60); RDW 17.2 % (11.9-15.9); WHITE BLOOD COUNT 14.8 K/mm3 (4.0-10.0)
[2023-08-28 10:22] LABS: ANISOCYTOSIS 3+; MACROCYTOSIS 0
[2023-08-29 07:25] LABS: HEMATOCRIT 45.2 % (35.4-49); HEMOGLOBIN 14.2 GM/dL (11.7-16.9); MCH 22.1 pg (25.7-33.7); MCHC 31.5 g/dl (32.0-35.9); MEAN CELL VOLUME 70.2 fl (80-96); MEAN PLT VOLUME 9.3 fl (7.5-11.1); PLATELET COUNT 556 10^3/uL (134-434); RBC 6.44 M/mm3 (4.00-5.60); RDW 17.1 % (11.9-15.9); WHITE BLOOD COUNT 20.7 K/mm3 (4.0-10.0)
[2023-08-29 07:47] LABS: ALBUMIN 4.3 g/dl (3.4-5.0); BLOOD UREA NITROGEN 30.6 mg/dL (7-18); MAGNESIUM 2.4 mg/dL (1.8-2.4)
[2023-08-29 07:51] LABS: CREATININE 0.7 mg/dL (0.55-1.3); PHOSPHOROUS 5.4 mg/dL (2.5-4.9)
[2023-08-29 07:52] LABS: BILIRUBIN,TOTAL 0.5 mg/dL (0.2-1); TOT PROT 8.1 g/dl (6.4-8.2)
[2023-08-29 08:25] LABS: ANISOCYTOSIS 0; MACROCYTOSIS 0
[2023-08-29 13:01] LABS: EPI CELLS >36 /uL (0-25.1); HYALINE CASTS 3 /uL (0-3.1); PH,URINE 5.5 (5.0-8.0); URINE APPEARANCE CLEAR; URINE BACTERIA 6 /uL (0-1359); URINE BILIRUBIN NEGATIVE (NEGATIVE); URINE COLOR YELLOW; URINE GLUCOSE (UA) NEGATIVE (NEGATIVE); URINE KETONE 3+ (NEGATIVE); URINE LEUK ESTERASE NEGATIVE (NEGATIVE); URINE NITRITE NEGATIVE (NEGATIVE); URINE PROTEIN 2+ (NEGATIVE); URINE RBC 100 /uL (0-23.9)
[2023-08-29 14:03] LABS: URINE WBC 59.5 /uL (0-25.8)
[2023-08-29] MEDS: OXcarbazepine 300 MG/5 ML UNIT DOSE CUPS PEG ONE (19:20)
[2023-08-30] MEDS: ACETAMINOPHEN 1000 MG/100 ML BAG IVPB ONE ×3 (04:14→22:36)
[2023-08-30] MEDS: OXcarbazepine 300 MG/5 ML UNIT DOSE CUPS PEG SCH (05:29)
[2023-08-30 07:17] LABS: BASO % 0.9 % (0-2.0); HEMATOCRIT 46.1 % (35.4-49); HEMOGLOBIN 14.2 GM/dL (11.7-16.9); LYMPH % 11.1 % (8-40); MCH 21.4 pg (25.7-33.7); MCHC 30.8 g/dl (32.0-35.9); MEAN CELL VOLUME 69.5 fl (80-96); MEAN PLT VOLUME 9.4 fl (7.5-11.1); MONO % 11.7 % (3.8-10.2); NEUT % 76.3 % (42.8-82.8); PLATELET COUNT 464 10^3/uL (134-434); RBC 6.62 M/mm3 (4.00-5.60); WHITE BLOOD COUNT 15.4 K/mm3 (4.0-10.0)
[2023-08-30 07:28] LABS: POTASSIUM 3.6 mmol/L (3.5-5.1)
[2023-08-30 07:35] LABS: CALCIUM 9.3 mg/dL (8.5-10.1)
[2023-08-30 07:36] LABS: ALBUMIN 3.9 g/dl (3.4-5.0); BLOOD UREA NITROGEN 26.6 mg/dL (7-18); MAGNESIUM 2.7 mg/dL (1.8-2.4)
[2023-08-30 07:39] LABS: CREATININE 0.7 mg/dL (0.55-1.3); PHOSPHOROUS 3.4 mg/dL (2.5-4.9)
[2023-08-30 07:40] LABS: BILIRUBIN,TOTAL 0.6 mg/dL (0.2-1)
[2023-08-30 07:42] LABS: TOT PROT 7.9 g/dl (6.4-8.2)
[2023-08-30] MEDS: SODIUM CHLORIDE 1,000 ML IV SCH (16:58)
[2023-08-30] MEDS: LEVALBUTEROL HCL 0.63 MG/3 ML VIAL.NEB. IH SCH (20:52)
[2023-08-31] MEDS: SODIUM CHLORIDE 500 ML IV STA (07:05)
[2023-08-31 08:05] LABS: BASO % 1.4 % (0-2.0); EOS % 0.3 % (0-4.5); HEMATOCRIT 34.9 % (35.4-49); HEMOGLOBIN 11.1 GM/dL (11.7-16.9); LYMPH % 17.9 % (8-40); MCH 22.1 pg (25.7-33.7); MCHC 31.9 g/dl (32.0-35.9); MEAN CELL VOLUME 69.4 fl (80-96); MEAN PLT VOLUME 9.7 fl (7.5-11.1); MONO % 13.2 % (3.8-10.2); NEUT % 67.2 % (42.8-82.8); PLATELET COUNT 247 10^3/uL (134-434); RBC 5.03 M/mm3 (4.00-5.60); RDW 17.2 % (11.9-15.9); WHITE BLOOD COUNT 7.2 K/mm3 (4.0-10.0)
[2023-08-31 08:12] LABS: POTASSIUM 3.2 mmol/L (3.5-5.1)
[2023-08-31 08:17] LABS: BLOOD UREA NITROGEN 17.6 mg/dL (7-18); CALCIUM 8.3 mg/dL (8.5-10.1)
[2023-08-31 08:18] LABS: MAGNESIUM 2.5 mg/dL (1.8-2.4)
[2023-08-31 08:20] LABS: CREATININE 0.4 mg/dL (0.55-1.3)
[2023-08-31 08:22] LABS: BILIRUBIN,TOTAL 0.5 mg/dL (0.2-1); PHOSPHOROUS 2.3 mg/dL (2.5-4.9)
[2023-08-31 08:28] LABS: ALBUMIN 2.8 g/dl (3.4-5.0); TOT PROT 5.7 g/dl (6.4-8.2)
[2023-08-31] MEDS: ACETAMINOPHEN 1000 MG/100 ML BAG IVPB ONE (12:19)
[2023-08-31] MEDS ORDERED: SENNOSIDES 8.6MG TABLET (FP) PO PRN (14:45)
[2023-08-31] MEDS: MEROPENEM 1 GM in DEXTROSE 5%-WATER 100 ML IVPB SCH (17:41)
[2023-08-31] MEDS: POTASSIUM CHLORIDE ORAL LIQUID 20 MEQ/15 ML GT ONE (18:37)
[2023-09-01 07:30] LABS: POTASSIUM 3.3 mmol/L (3.5-5.1)
[2023-09-01 07:33] LABS: ALBUMIN 2.7 g/dl (3.4-5.0); BLOOD UREA NITROGEN 11.6 mg/dL (7-18); MAGNESIUM 2.3 mg/dL (1.8-2.4)
[2023-09-01 07:35] LABS: CREATININE 0.3 mg/dL (0.55-1.3)
[2023-09-01 07:36] LABS: PHOSPHOROUS 3.5 mg/dL (2.5-4.9)
[2023-09-01 07:37] LABS: BILIRUBIN,TOTAL 0.2 mg/dL (0.2-1); TOT PROT 5.4 g/dl (6.4-8.2)
[2023-09-01 08:31] LABS: BASO % 1.2 % (0-2.0); EOS % 3.6 % (0-4.5); HEMATOCRIT 33.7 % (35.4-49); HEMOGLOBIN 10.3 GM/dL (11.7-16.9); LYMPH % 30.1 % (8-40); MCH 21.8 pg (25.7-33.7); MCHC 30.6 g/dl (32.0-35.9); MEAN CELL VOLUME 71.2 fl (80-96); MEAN PLT VOLUME 10.1 fl (7.5-11.1); MONO % 10.4 % (3.8-10.2); NEUT % 54.7 % (42.8-82.8); PLATELET COUNT 216 10^3/uL (134-434); RBC 4.73 M/mm3 (4.00-5.60); RDW 17.2 % (11.9-15.9); WHITE BLOOD COUNT 4.2 K/mm3 (4.0-10.0)
[2023-09-01 09:37] LABS: ANISOCYTOSIS 2+; MACROCYTOSIS 0; OVALOCYTE 1+
[2023-09-01] MEDS: POTASSIUM CHLORIDE ORAL LIQUID 20 MEQ/15 ML PO ONE (10:43)
[2023-09-01] MEDS: DOCUSATE SODIUM 100 MG CAPSULE (FP) PO SCH (10:44)
[2023-09-02 02:16] VITALS: RESP 20
[2023-09-02 05:28] VITALS: TEMP 98.1
[2023-09-02 08:14] LABS: POTASSIUM 3.6 mmol/L (3.5-5.1)
[2023-09-02 08:19] LABS: BLOOD UREA NITROGEN 7.1 mg/dL (7-18)
[2023-09-02 08:20] LABS: MAGNESIUM 2.3 mg/dL (1.8-2.4)
[2023-09-02 08:22] LABS: CREATININE 0.2 mg/dL (0.55-1.3)
[2023-09-02 08:30] LABS: BASO % 1.2 % (0-2.0); EOS % 7.7 % (0-4.5); HEMATOCRIT 30.4 % (35.4-49); HEMOGLOBIN 9.4 GM/dL (11.7-16.9); LYMPH % 35.7 % (8-40); MCH 21.6 pg (25.7-33.7); MCHC 30.8 g/dl (32.0-35.9); MEAN CELL VOLUME 70.2 fl (80-96); MEAN PLT VOLUME 10.5 fl (7.5-11.1); NEUT % 45.4 % (42.8-82.8); PLATELET COUNT 229 10^3/uL (134-434); RBC 4.34 M/mm3 (4.00-5.60); RDW 17.1 % (11.9-15.9); WHITE BLOOD COUNT 3.8 K/mm3 (4.0-10.0)
[2023-09-02 11:33] VITALS: BP 141/69; PULSE 98
== END 2023-09-02 12:14 | DRG 871 ==
LOC: JER 20:38 → JERBED 08-20 03:53 → J4W 08-20 19:41
PROVIDERS: ADMIT Internal Medicine; ATTEND Internal Medicine
PROC: 0D2DXUZ Change Feeding Device in Lower Intestinal Tract, External Approach (ICD-10-PCS; principal; 2023-08-29)
DX: A41.9 Sepsis, unspecified organism (principal); E43 Unspecified severe protein-calorie malnutrition; J69.0 Pneumonitis due to inhalation of food and vomit; J96.01 Acute respiratory failure with hypoxia; R53.2 Functional quadriplegia; Z68.1 Body mass index [BMI] 19.9 or less, adult; E87.20 Acidosis, unspecified; G40.909 Epilepsy, unspecified, not intractable, without status epilepticus; K21.9 Gastro-esophageal reflux disease without esophagitis; G80.9 Cerebral palsy, unspecified; Z43.4 Encounter for attention to other artificial openings of digestive tract; J45.909 Unspecified asthma, uncomplicated; J98.4 Other disorders of lung; R00.0 Tachycardia, unspecified; E87.6 Hypokalemia
CPT/HCPCS: 0241U-QW; 36415; 49451; 71045-TC-FY; 71275-TC; 80048; 80053; 80156; 80177; 81003; 82803; 82962; 83605; 83735; 84100; 84484; 85025; 85610; 85730; 86480; 86850; 86900; 86901; 87040; 87070; 87076; 87077; 87086; 87116; 87186; 87205; 87206; 93005; 93010; 93306-TC; 93970-TC; 94640; 99285-25; J0131; J0475